=== PATIENT | female | born 1995 | race Caucasian/White ===

== ENCOUNTER 2017-09-21 19:47 | Emergency (ER) | payer MEDICAID, MEDICARE, OTHER ==
[~2017-09-21] VITALS: Ht 157.5 cm; Wt 70.8 kg
--- OUTSIDE RECORDS SUMMARY | 2017-09-21 19:56 | XMS REPORT ---
Author Author Keisha Hoover [facility] Address [address] [place], [place] [id number] Care Team Providers Care Talent Manager Name Role Phone Keisha Hoover PCP Unavailable Allergies and Adverse Reactions Name Reaction Notes Alejandra Mom does not want her to have Motrin Plan of Treatment Not available. Medications Active Name Start Date Estimated Completion Date SIG Comments Minipress 1 mg oral capsule take 4 capsules (4 mg) by oral route daily at bedtime Latuda 40 mg oral tablet take 1 tablet (40 mg) by oral route once daily with food (at least 350 calories) Vistaril 25 mg oral capsule take 1 capsule (25 mg) by oral route 3 times per day acetaminophen 325 mg oral tablet 02/17/2016 take 1 - 2 tablets (325 - 650 mg ) by oral route every 4-6 hours as needed Max:3 gram/day topiramate 50 mg oral tablet 02/25/2016 08/23/2016 take 1 tablet (50 mg) by oral route 2 times per day for 30 days topiramate 100 mg oral tablet 02/25/2016 08/23/2016 take 1 tablets by oral route 2 times a day for 30 days cetirizine 10 mg oral tablet 03/11/2016 09/07/2016 take 1 tablet (10 mg) by oral route once daily for 30 days Ambien 5 mg oral tablet take 1 tablet (5 mg) by oral route once daily at bedtime cyclobenzaprine 5 mg oral tablet 04/08/2016 take 1 tablet by oral route once a day (at bedtime) as needed omeprazole 40 mg oral capsule,delayed release(DR/EC) 04/23/2016 07/22/2016 take 1 capsule by oral route 2 times a day for 30 days cyclobenzaprine 5 mg oral tablet 05/04/2016 take 1 tablet by oral route once a day (at bedtime) as needed lamotrigine 200 mg oral tablet 05/11/2016 take 1 tablet (200 mg) by oral route 2 for 30 days CytoGam 50 mg/mL intravenous solution 06/08/2016 06/09/2016 inject 1 milliliter by intravenous route daily for 1 day Name Start Date Expiration Date SIG Comments amoxicillin-pot clavulanate 500-125 mg oral tablet 09/04/2015 09/14/2015 take 1 tablet by oral route every 12 hours for 10 days sertraline 50 mg oral tablet 09/06/2015 10/06/2015 take 1 tablet (50 mg) by oral route once daily for 30 days topiramate 100 mg oral tablet 09/06/2015 10/06/2015 take 1 tablet (100 mg) by oral route 2 for 30 days clonazepam 1 mg oral tablet 10/23/2015 11/22/2015 take 1 tablet (1 mg) by oral route 2 for 30 days lamotrigine 200 mg oral tablet 03/03/2016 06/01/2016 take 1 tablet (200 mg) by oral route 2 for 30 days Zestril 5 mg oral tablet 04/08/2016 05/08/2016 take 1 tablet (5 mg) by oral route once daily for 30 days Discontinued Name Start Date Discontinued Date SIG Comments fluticasone 50 mcg/actuation nasal spray,suspension 01/27/2016 spray 2 sprays (100 mcg) in each nostril by intranasal route once daily as needed aripiprazole 20 mg oral tablet 09/06/2015 01/27/2016 take 1 tablet (20 mg) by oral route once daily omeprazole 20 mg oral capsule,delayed release(DR/EC) 09/06/2015 09/09/2015 take 1 capsule by oral route 2 times a day for 30 days prazosin 1 mg oral capsule 09/06/2015 01/27/2016 take 3 capsules by oral route daily at bedtime for 30 days prazosin 1 mg oral capsule 09/06/2015 01/27/2016 take 3 capsules by oral route daily at bedtime for 30 days dose updated ProAir HFA 90 mcg/actuation inhalation HFA aerosol inhaler 09/06/20152015 inhale 1 puff (90 mcg) by inhalation route every 6 hours melatonin 3 mg oral tablet 02/17/2016 04/08/2016 take 3 tablets by oral route daily at bedtime for 30 days cyclobenzaprine 5 mg oral tablet 03/11/2016 04/08/2016 take 1 tablet (5 mg) by oral route at bedtime as needed Zestril 5 mg oral tablet 05/04/2016 06/04/2016 take 1 tablet (5 mg) by oral route once daily for 30 days Problem List Description Status Onset Anxiety disorder Active Asperger syndrome Active Bipolar 1 disorder Active 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903 m 99 % 04/08/2016 8:57:00 AM 118 mmHg 60 mmHg 74 bpm 20 rpm 98.1 F 175 lbs 64 in 30.04 kg/m2 1.89 m2 100 % 03/11/2016 9:53:00 AM 128 mmHg 64 mmHg 101 bpm 20 rpm 98.7 F 172 lbs 64 in 29.5234 kg/m 1.877 m 98 % 02/25/2016 10:10:00 AM 124 mmHg 76 mmHg 76 bpm 20 rpm 97.1 F 173 lbs 64 in 29.70 kg/m2 1.88 m2 100 % 01/27/2016 10:27:00 AM 132 mmHg 70 mmHg 82 bpm 20 rpm 98.1 F 172 lbs 64 in 29.5234 kg/m 1.877 m 100 % 09/04/2015 10:09:00 AM 122 mmHg 70 mmHg 77 bpm 20 rpm 98 F 194 lbs 64 in 33.30 kg/m2 1.99 m2 99 % Social History Name Description Comments Lives with Mom Tobacco Never smoker Alcohol Never History of Procedures Date Ordered Description Order Status 09/04/2015 12:00 AM HTLV/HIV CONFIRMJ ANTIBODY Reviewed 09/04/2015 12:00 AM BORDETELLA ANTIBODY Reviewed 01/27/2016 12:00 AM RADEX WRIST COMPLETE MINIMUM 3 VIEWS Reviewed 04/08/2016 12:00 AM Phenergan, Up to 50 Mg [facility] Medicaid Reviewed Results Summary Data and Description Results 09/04/2015 11:35 AM HIV AG/AB COMBO 0.13 Hep A Ab, IgM Negative HBsAg Screen Negative Hep B Core Ab, IgM Negative Hep C Virus Ab <0.1 History Of Immunizations Not available. History of Past Illness Name Date of Onset Comments Seizure disorder frontal lobe Mental retardation Asperger syndrome Depression Anxiety disorder Blind in both eyes Bipolar 1 disorder Gastroesophageal Reflux PTSD (post-traumatic stress disorder) TMJ (dislocation of temporomandibular joint) Benign Essential Hypertension 04/13/2016 Migraine aura without headache 04/13/2016 High risk sexual behavior Sep 04 2015 10:10AM Asperger syndrome Sep 04 2015 10:10AM Bipolar 1 disorder Sep 04 2015 10:10AM Gastroesophageal Reflux Sep 04 2015 10:10AM Mental retardation Sep 04 2015 10:10AM PTSD (post-traumatic stress disorder) Sep 04 2015 10:10AM Seizure disorder Sep 04 2015 10:10AM Wrist pain, acute, right Jan 27 2016 10:28AM Anxiety disorder Jan 27 2016 10:28AM Seizure disorder Jan 27 2016 10:28AM Seizure disorder Feb 25 2016 10:12AM Acute nonintractable headache, unspecified headache type Mar 11 2016 9:55AM Allergic conjunctivitis, bilateral Mar 11 2016 9:55AM Right thigh pain Mar 11 2016 9:55AM Benign essential hypertension Apr 08 2016 8:57AM Migraine aura without headache Apr 08 2016 8:57AM TMJ (dislocation of temporomandibular joint) Jun 04 2016 3:57PM Encounter for surveillance of other contraceptive Jun 04 2016 3:57PM Implanon-checking, reinsertion or removal Jun 08 2016 2:55PM Payers Insurance Name Company Name Plan Name Plan Number Policy Number Policy Group Number Start Date Medicare Part A Medicare RHC [id number] N/A [facility] Comm [id number] N/A Medicare Part B Medicare Of [place] [id number] N/A [facility] Comm Plan of [id number] N/A Medicare Part A Medicare - Lab/Xray [id number] N/A Medicare Part A Medicare Part A [id number] N/A History of Encounters Visit Date Visit Type Provider 06/08/2016 Office visit Keisha Hoover APRN 06/04/2016 Office visit Dionisio Evans DO 04/08/2016 Office visit Dionisio Evans DO 03/11/2016 Office visit Dionisio Evans DO 02/25/2016 Office visit Dionisio Evans DO 02/20/2016 [facility] Behzad Jamison MD 01/27/2016 Office visit Dionisio Evans DO 10/09/2015 [facility] Behzad Jamison MD 09/04/2015 Office visit Dionisio Evans DO
--- OUTSIDE RECORDS SUMMARY | 2017-09-21 19:56 | XMS REPORT ---
Author Author Dionisio Evans [facility] Address [address] [place] [id number] Care Team Providers Care Clam Shucker Name Role Phone Dionisio Evans PCP Unavailable Allergies and Adverse Reactions Name [...] by oral route 3 times per day omeprazole 40 mg oral capsule,delayed release(DR/EC) 02/11/2016 take 1 capsule by oral route daily acetaminophen 325 mg oral tablet 02/17/2016 take 1 - 2 tablets (325 - 650 mg ) by oral route every 4-6 hours as needed Max:3 gram/day melatonin 3 mg oral tablet 02/17/2016 08/15/2016 take 3 tablets by oral route daily at bedtime for 30 days topiramate 50 mg oral tablet 02/25/2016 08/23/2016 take 1 tablet (50 mg) by oral route 2 times per day for 30 days topiramate 100 mg oral tablet 02/25/2016 08/23/2016 take 1 tablets by oral route 2 times a day for 30 days lamotrigine 200 mg oral tablet 03/03/2016 06/01/2016 take 1 tablet (200 mg) by oral route 2 for 30 days cetirizine 10 mg oral tablet 03/11/2016 09/07/2016 take 1 tablet (10 mg) by oral route once daily for 30 days cyclobenzaprine 5 mg oral tablet 03/11/2016 take 1 tablet (5 mg) by oral route at bedtime as needed Zestril 20 mg oral tablet 03/11/2016 04/10/2016 take 0.5 tablet by oral route daily for 30 days Name Start Date Expiration Date SIG Comments [...] by oral route 2 for 30 days Discontinued Name Start Date Discontinued Date SIG Comments fluticasone 50 mcg/actuation nasal spray,suspension 01/27/2016 spray 2 sprays (100 mcg) in each nostril by intranasal route once daily as needed fluticasone 50 mcg/actuation nasal spray,suspension 01/27/2016 spray [...] mcg) by inhalation route every 6 hours Problem List Description Status Onset Anxiety disorder Active Asperger syndrome Active Bipolar 1 disorder Active 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 Depression Active Gastroesophageal Reflux Active Mental retardation Active PTSD (post-traumatic stress disorder) Active Seizure disorder Active TMJ (dislocation of temporomandibular joint) Active Vital Signs Date Time BP-Sys(mm[Hg] BP-Paola(mm[Hg]) HR(bpm) RR(rpm) Temp WT HT HC BMI BSA BMI Percentile O2 Sat(%) 03/11/2016 9:53:00 AM 128 mmHg 64 mmHg 101 bpm 20 rpm 98.7 F 172 lbs 64 in 29.52 kg/m2 1.88 m2 98 % 02/25/2016 10:10:00 AM 124 mmHg 76 mmHg 76 bpm 20 rpm 97.1 F 173 lbs 64 in 29.6951 kg/m 1.8824 m 100 % 01/27/2016 10:27:00 AM 132 mmHg 70 mmHg 82 bpm 20 rpm 98.1 F 172 lbs 64 in 29.52 kg/m2 1.88 m2 100 % 09/04/2015 10:09:00 AM 122 mmHg 70 mmHg 77 bpm 20 rpm 98 F 194 lbs 64 in 33.2997 kg/m 1.9934 m 99 % Social History Name Description Comments Lives with Mom Tobacco Never smoker Alcohol Never History of Procedures Date Ordered Description Order Status 09/04/2015 12:00 AM HTLV/HIV CONFIRMJ ANTIBODY Reviewed 09/04/2015 12:00 AM BORDETELLA ANTIBODY Reviewed 01/27/2016 12:00 AM RADEX WRIST COMPLETE MINIMUM 3 VIEWS Reviewed Results Summary Data and Description Results [...] stress disorder) TMJ (dislocation of temporomandibular joint) High risk sexual behavior Sep 04 2015 [...] Right thigh pain Mar 11 2016 9:55AM Payers Insurance Name Company Name Plan Name Plan Number Policy Number Policy Group Number Start Date Medicare Part A Medicare [facility] [id number] N/A [facility] - RHC - Community Plan of [facility] RHC Comm [id number] N/A Medicare Part B Medicare Of [place] [id number] N/A [facility] Plan [facility] Comm Plan of [id number] N/A Medicare Part A Medicare - Lab/Xray [id number] N/A Medicare Part A Medicare Part A [id number] N/A History of Encounters Visit Date Visit Type Provider 03/11/2016 Office visit Dionisio Evans DO 02/25/2016 Office visit Dionisio Evans DO 01/27/2016 Office visit Dionisio Evans DO 10/09/2015 [facility] Behzad Jamison MD 09/04/2015 Office visit Dionisio Evans DO
--- OUTSIDE RECORDS SUMMARY | 2017-09-21 19:56 | XMS REPORT ---
Author Author Dionisio Evans [facility] Address [address] [place] [id number] Care Team Providers Care Executive Chairman Of The Board Name Role Phone Dionisio Evans PCP Unavailable [...] by oral route 2 for 30 days hydrocodone-acetaminophen 7.5-325 mg oral tablet 06/25/2016 take 1 tablet by oral route every 6 hours as needed for pain cyclobenzaprine 5 mg oral tablet 07/06/2016 take 1 tablet by oral route once a day (at bedtime) as needed Mirena 20 mcg/24 hr (5 years) intrauterine intrauterine device omeprazole 40 mg oral capsule,delayed release(DR/EC) 07/28/2016 take 1 capsule by oral route 2 times a day for 30 days cetirizine 10 mg oral tablet 07/28/2016 take 1 tablet (10 mg) by oral route once daily for 30 days topiramate 50 mg oral tablet 07/30/2016 take 1 tablet (50 mg) by oral route 2 times per day for 30 days cyclobenzaprine 5 mg oral tablet 07/30/2016 take 1 tablet by oral route once a day (at bedtime) as needed Patanol 0.1 % ophthalmic drops 07/31/2016 instill 1 drop into affected eye (s) by ophthalmic route 2 times per day at an interval of 6 to 8 hours Name Start Date Expiration Date SIG Comments [...] oral route once daily for 30 days omeprazole 40 mg oral capsule,delayed release(DR/EC) 04/23/2016 07/22/2016 take 1 capsule by oral route 2 times a day for 30 days CytoGam 50 mg/mL intravenous solution 06/08/2016 06/09/2016 inject 1 milliliter by intravenous route daily for 1 day nystatin 100,000 unit/gram topical powder 07/24/2016 07/29/2016 use as directed for 5 days Discontinued Name Start Date Discontinued Date [...] TMJ (dislocation of temporomandibular joint) Active Benign essential hypertension Active 04/13/2016 Migraine aura without headache Active 04/13/2016 Vital Signs Date Time BP-Sys(mm[Hg] BP-Paola(mm[Hg]) HR(bpm) RR(rpm) Temp WT HT HC BMI BSA BMI Percentile O2 Sat(%) 07/31/2016 10:07:00 AM 126 mmHg 68 mmHg 78 bpm 18 rpm 97.4 F 171 lbs 64 in 29.35 kg/m2 1.87 m2 99 % 07/24/2016 10:39:00 AM 122 mmHg 66 mmHg 63 bpm 97.6 F 174 lbs 64 in 29.8667 kg/m 1.8878 m 06/12/2016 10:06:00 AM 106 mmHg 66 mmHg 60 bpm 97.4 F 172 lbs 64 in 29.52 kg/m2 1.88 m2 06/11/2016 8:43:00 AM 122 mmHg 66 mmHg 62 bpm 18 rpm 98 F 174 lbs 64 in 29.8667 kg/m 1.8878 m 98 % 06/08/2016 2:10:00 PM 108 mmHg 62 mmHg [...] 12:00 AM Phenergan, Up to 50 Mg RHC Medicaid Reviewed 06/08/2016 12:00 AM REMOVE CONTRACEPTIVE CAPSULE Reviewed 06/12/2016 10:38 AM URINE TEST Reviewed 06/12/2016 12:00 AM INSERT INTRAUTERINE DEVICE Reviewed 06/12/2016 12:00 AM Levonorgestrel-releasing IUD contraceptive system, 52 mg 5 year Reviewed 06/11/2016 12:00 AM ASSAY OF FREE THYROXINE Reviewed 06/11/2016 12:00 AM ASSAY OF TOTAL THYROXINE Reviewed 06/11/2016 12:00 AM ASSAY THYROID STIM HORMONE Reviewed 06/11/2016 12:00 AM ASSAY OF THYROID (T3 OR T4) Reviewed Results Summary Data and Description Results 09/04/2015 11:35 AM HIV AG/AB COMBO 0.13 Hep A Ab, IgM Negative HBsAg Screen Negative Hep B Core Ab, IgM Negative Hep C Virus Ab <0.1 06/11/2016 9:50 AM FREE T4 1.02 TSH 1.740 uIU/mL 06/12/2016 10:38 AM Test, Urine Negative History Of Immunizations Not available. History of Past Illness Name Date of Onset Comments Seizure disorder frontal lobe Mental retardation Asperger syndrome Depression Anxiety disorder Blind in both eyes Bipolar 1 disorder Gastroesophageal Reflux PTSD (post-traumatic stress disorder) TMJ (dislocation of temporomandibular joint) Benign essential hypertension 04/13/2016 Migraine aura without headache 04/13/2016 High [...] reinsertion or removal Jun 08 2016 2:55PM Bilateral Exophthalmos Jun 11 2016 8:46AM Special investigations and examinations; examination or test; examination or test, negative result Jun 12 2016 10:38AM IUD insertion Jun 12 2016 10:28AM IUD Check/Removal/Management/Reinsertion Jul 24 2016 10:42AM Seizure disorder Jul 31 2016 10:08AM Allergic conjunctivitis and rhinitis Jul 31 2016 10:08AM Payers Insurance Name Company Name Plan Name Plan Number Policy Number Policy Group Number Start Date Medicare Part A Medicare RHC [id number] N/A [facility] - RHC - Community Plan [facility] RHC Comm [id number] N/A Medicare Part B Medicare Of [place] [id number] N/A [facility] Comm Plan of [id number] N/A Medicare Part A Medicare - Lab/Xray [id number] N/A Medicare Part A Medicare Part A [id number] N/A History of Encounters Visit Date Visit Type Provider 07/31/2016 Office visit Dionisio Evans DO 07/24/2016 Office visit Keisha Hoover COMMUNICATIONS SYSTEMS ENGINEER 06/12/2016 Office visit Keisha Hoover COMMUNICATIONS SYSTEMS ENGINEER 06/11/2016 Office visit Dionisio Evans DO 06/08/2016 Office visit Keisha Hoover COMMUNICATIONS SYSTEMS ENGINEER 06/04/2016 Office visit Dionisio Evans DO 04/08/2016 Office visit Dionisio Evans DO 03/11/2016 Office visit Dionisio Evans DO 02/25/2016 Office visit Dionisio Evans DO 02/20/2016 [facility] Behzad Jamison MD 01/27/2016 Office visit Dionisio Evans DO 10/09/2015 [facility] Behzad Jamison MD 09/04/2015 Office visit Dionisio Evans DO
--- OUTSIDE RECORDS SUMMARY | 2017-09-21 19:56 | XMS REPORT ---
Author Author Keisha Hoover [facility] [place] [facility] Address [address] [place], [place] [phone] Care Team Providers Care Plate And Frame Filter Operator Name Role Phone Keisha Hoover PCP Unavailable [...] every 6 hours as needed for pain Name Start Date Expiration Date SIG Comments [...] oral route once daily for 30 days CytoGam 50 mg/mL intravenous solution 06/08/2016 06/09/2016 inject 1 milliliter by intravenous route daily for 1 day Discontinued Name Start Date Discontinued Date SIG [...] HC BMI BSA BMI Percentile O2 Sat(%) 06/12/2016 10:06:00 AM 106 mmHg 66 mmHg [...] C Virus Ab <0.1 06/11/2016 9:50 AM TSH 1.740 uIU/mL 06/12/2016 10:38 AM Test, [...] 10:38AM IUD insertion Jun 12 2016 10:28AM Payers Insurance Name Company Name Plan Name Plan Number Policy Number Policy Group Number Start Date Medicare Part A Medicare RHC [id number] N/A [facility] - Community Plan [facility] RHC Comm [id number] N/A Medicare Part B Medicare Of [place] [id number] N/A [facility] Comm Plan of [id number] N/A Medicare Part A Medicare - Lab/Xray [id number] N/A Medicare Part A Medicare Part A [id number] N/A History of Encounters Visit Date Visit Type Provider 06/12/2016 Office visit Keisha Hoover FINANCIAL ADVISOR TRAINEE 06/11/2016 Office visit Dionisio Evans DO 06/08/2016 Office visit Keisha Hoover FINANCIAL ADVISOR TRAINEE 06/04/2016 Office visit Dionisio Evans DO 04/08/2016 Office visit Dionisio Evans DO 03/11/2016 Office visit Dionisio Evans DO 02/25/2016 Office visit Dionisio Evans DO 02/20/2016 [facility] Behzad Jamison MD 01/27/2016 Office visit Dionisio Evans DO 10/09/2015 [facility] Behzad Jamison MD 09/04/2015 Office visit Dionisio Evans DO
--- OUTSIDE RECORDS SUMMARY | 2017-09-21 19:57 | XMS REPORT | CCD ---
Author Author SHANIQUE GAUTHIER Organization Unknown Address [address] [address] [place] [id number] Care Team Providers Care Aerial Photograph Interpreter Name Role Phone KAYLIN BOB, DOLLY Callahan DOLLY EWING MD Vital Signs Unknown or Not Available. Allergies Unknown or Not Available. Procedures Procedure Code Procedure Type Date CERVICAL SPINE; 2 VIEWS OR [id number] 09/2016 History of Immunizations Immunization Code Date DTP 01 1994 DTP 01 1994 OPV 02 1994 OPV 02 1994 OPV 02 07/13/1995 OPV 02 04/04/1999 MMR 03 07/13/1995 MMR 03 04/04/1999 Hep B, adolescent or pediatric 08 1994 Hep B, adolescent or pediatric 08 1994 Hep B, adolescent or pediatric 08 1994 DTaP 20 04/04/1999 DTP-Hib 22 07/13/1995 HBIG 30 1994 Hib (PRP-OMP) 49 1994 Hib (PRP-OMP) 49 1994 Problems Unknown or Not Available. Results Unknown or Not Available. Active Medications Unknown or Not Available. Medications Administered During Visit Unknown or Not Available. Encounters Encounter Diagnosis Diagnosis Code Start Date Generalized idiopathic epilepsy and epileptic syndromes, not intractable, without status epilepticus [id number] 02/20/2016 Social History Smoking Status Code Start Date End Date Never smoker [id number] Patient Decision Aids Unknown or Not Available. Discharge Instructions You were admitted to [facility] on 02/20/2016 08:39 with a principal diagnosis of Generalized idiopathic epilepsy and epileptic syndromes, not intractable, You were discharged from [facility] on 02/20/2016 09:41 Should you have any questions prior to discharge, please contact a member of your healthcare team. If you have left the hospital and have any questions, please contact your primary care physician. Chief Complaint and Reason For Visit Chief Complaint Date of Onset SEIZURE NECK PAIN Function Status Unknown or Not Available. Plan of Care Unknown or Not Available. Referral/Transition of Care Unknown or Not Available.
--- OUTSIDE RECORDS SUMMARY | 2017-09-21 19:57 | XMS REPORT ---
Author Author Dionisio Evans [facility] Address [address] [place] [id number] Care Team Providers Care Typing Teacher Name Role Phone Dionisio Evans PCP Unavailable Allergies and Adverse Reactions Name Reaction Notes Breantikiara Mom does not want her to have [...] by oral route 3 times per day Ambien 5 mg oral tablet take 1 tablet (5 mg) by oral route once daily at bedtime cyclobenzaprine 5 mg oral tablet 04/08/2016 take 1 tablet by oral route once a day (at bedtime) as needed lamotrigine 200 mg oral tablet 05/11/2016 take 1 tablet (200 mg) by oral route 2 for 30 days cyclobenzaprine 5 mg oral tablet 07/06/2016 take [...] an interval of 6 to 8 hours cetirizine 10 mg oral tablet 08/25/2016 TAKE 1 TABLET BY MOUTH ONCE DAILY AT 8 A.M. buspirone 15 mg oral tablet take 1 tablet (15 mg) by oral route 3 times per day hydrocodone-acetaminophen 7.5-325 mg oral tablet 09/23/2016 take 1 tablet by oral route every 6 hours as needed for pain topiramate 50 mg oral tablet 09/24/2016 TAKE 1 TABLET BY MOUTH TWICE DAILY AT 8 A.M. AND 8 P.M. cetirizine 10 mg oral tablet 10/22/2016 TAKE 1 TABLET BY MOUTH ONCE DAILY AT 8 A.M. acetaminophen 325 mg oral tablet 10/26/2016 take 2 tablets (650 mg) by oral route every 6 hours as needed for pain or fever Max:3 gram/day melatonin 3 mg oral tablet 10/26/2016 04/24/2017 take 2 tablets by oral route once a day (at bedtime) as needed for 30 days lamotrigine 200 mg oral tablet 11/26/2016 TAKE 1 TABLET BY MOUTH TWICE DAILY AT 8 A.M. AND 8 P.M. cyclobenzaprine 5 mg oral tablet 12/17/2016 TAKE 1 TABLET BY MOUTH AT BEDTIME NEEDED Name Start Date Expiration Date SIG Comments [...] by oral route 2 for 30 days topiramate 50 mg oral [...] oral route once daily for 30 days Zestril 5 mg oral [...] HC BMI BSA BMI Percentile O2 Sat(%) 09/23/2016 9:38:00 AM 128 mmHg 70 mmHg 93 bpm 20 rpm 98 F 163 lbs 64 in 27.98 kg/m2 1.83 m2 100 % 07/31/2016 10:07:00 AM 126 mmHg 68 mmHg 78 bpm 18 rpm 97.4 F 171 lbs 64 in 29.3518 kg/m 1.8715 m 99 % 07/24/2016 10:39:00 AM 122 mmHg 66 mmHg 63 bpm 97.6 F 174 lbs 64 in 29.87 kg/m2 1.89 m2 06/12/2016 10:06:00 AM 106 mmHg 66 mmHg 60 bpm 97.4 F 172 lbs 64 in 29.5234 kg/m 1.877 m 06/11/2016 8:43:00 AM 122 mmHg 66 mmHg 62 bpm 18 rpm 98 F 174 lbs 64 in 29.87 kg/m2 1.89 m2 98 % 06/08/2016 2:10:00 PM 108 mmHg 62 mmHg 80 bpm 16 rpm 99 F 173 lbs 64 in 29.6951 kg/m 1.8824 m 100 % 06/04/2016 3:50:00 PM 126 mmHg 88 mmHg 112 bpm 18 rpm 97.9 F 176.8 lbs 64 in 30.35 kg/m2 1.90 m2 99 % 04/08/2016 8:57:00 AM 118 mmHg 60 mmHg 74 bpm 20 rpm 98.1 F 175 lbs 64 in 30.0384 kg/m 1.8933 m 100 % 03/11/2016 9:53:00 AM 128 mmHg [...] ASSAY OF THYROID (T3 OR T4) Reviewed 12/17/2016 12:00 AM Consult/Referral Reviewed Results Summary Data and Description Results [...] conjunctivitis and rhinitis Jul 31 2016 10:08AM Bitten by dog, subsequent encounter Sep 23 2016 9:40AM Seizure disorder Dec 17 2016 4:33PM Payers Insurance Name Company Name Plan Name Plan Number Policy Number Policy Group Number Start Date Medicare RHC Medicare RHC [id number] N/A [facility] Comm [id number] N/A Medicare Part B Medicare Of [place] [id number] N/A [facility] Plan of [id number] N/A Medicare Part A Medicare - Lab/Xray [id number] N/A Medicare Part A Medicare Part A [id number] N/A History of Encounters Visit Date Visit Type Provider 09/23/2016 Office visit Dionisio Evans DO 07/31/2016 Office visit Dionisio Evans DO 07/24/2016 Office visit Keisha Hoover OPERATIONS RESEARCH MANAGER 06/12/2016 Office visit Keisha Hoover OPERATIONS RESEARCH MANAGER 06/11/2016 Office visit Dionisio Evans DO 06/08/2016 Office visit Keisha Hoover OPERATIONS RESEARCH MANAGER 06/04/2016 Office visit Dionisio Evans DO 04/08/2016 Office visit Dionisio Evans DO 03/11/2016 Office visit Dionisio Evans DO 02/25/2016 Office visit Dionisio Evans DO 02/20/2016 Hospital Behzad Jamison MD 01/27/2016 Office visit Dionisio Evans DO 10/09/2015 [facility] Behzad Jamison MD 09/04/2015 Office visit Dionisio Evans DO
--- OUTSIDE RECORDS SUMMARY | 2017-09-21 19:57 | XMS REPORT ---
Author Author ANTONIO GILLESPIE [facility] Address Unknown Care Team Providers Care Payroll Representative Name Role Phone ANTONIO GILLESPIE Unavailable PROBLEMS Type Condition ICD9-CM Code [id number] Code Onset Dates Condition Status SNOMED Code Assessment Dental examination Z01.20 Jun, Active 594176840 ALLERGIES Substance Reaction Event Type Date Status dilantin Unknown Non Drug Allergy Jun, Active motrin Unknown Non Drug Allergy Jun, Active SOCIAL HISTORY No smoking Hx information available PLAN OF CARE VITAL SIGNS Blood pressure systolic 101 mmHg 2016-06-18 Blood pressure diastolic 58 mmHg 2016-06-18 MEDICATIONS Medication Instructions Dosage Frequency Start Date End Date Duration Status Cyclobenzaprine HCl Active Topamax Active Vistaril Active Prilosec Active Latuda Active Hydrocodone-Acetaminophen Active ZyrTEC Active Zestril Active Ambien Active Lamictal Active RESULTS No Results PROCEDURES Procedure Date Ordered Related Diagnosis Body Site LTD ORAL EVALUATION - PROBLEM FOCUS Jun 18, 2016 PANORAMIC FILM SEE ALSO CODE 51388 Jun 18, 2016 IMMUNIZATIONS No Known Immunizations
--- OUTSIDE RECORDS SUMMARY | 2017-09-21 19:57 | XMS REPORT | CCD ---
Author Author DADA REA Organization Unknown Address [address] [place], [place] [address] Care Team Providers Care Paint Specialist Name Role Phone KAYLIN BOB, DOLLY Del Toro Attphymya DOLLY EWING MDsurey Vital Signs Unknown or Not Available. Allergies Unknown or Not Available. Procedures Procedure Code Procedure Type Date CBC W/ AUTO DIFF (RFLX MAN DIFF IF IND) 4307129 SNOMED CT 10/09/2015 COMPREHENSIVE METABOLIC PANEL 135977891 SNOMED CT [address] 10/09/2015 RAPID DRUG SCREEN 229854351 SNOMED CT 10/09/2015 UA ROUTINE C&S IF IND 976148382 SNOMED CT 10/09/[id number] 10/09/2015 ^CBC W/AUTO DIFF 1050216 SNOMED CT 10/09/2015 ^UA AUTO DIPSTICK ONLY 779435312 SNOMED CT 10/09/2015 History of Immunizations Immunization Code Date DTP 1994 DTP 1994 OPV 02 1994 OPV 02 1994 OPV 02 07/13/1995 OPV 02 04/04/1999 MMR 03 07/13/1995 MMR 03 04/04/1999 Hep B, adolescent or pediatric 08 1994 Hep B, adolescent or pediatric 08 1994 Hep B, adolescent or pediatric 08 1994 DTaP 20 04/04/1999 Hib (PRP-OMP) 49 1994 Hib (PRP-OMP) 49 1994 Problems Unknown or Not Available. Results COMPREHENSIVE METABOLIC PANEL - Collect Date/Time: 10/09/2015 16:40 Test Name Code Test Result Test Units Test Ref Range GLUCOSE 2345-7 102 MG/DL L=70 H=100 SODIUM 2951-2 143 MEQ/L L=135 H=148 POTASSIUM 2823-3 3.6 MEQ/L L=3.5 H=5.3 CHLORIDE 2075-0 113 MEQ/L L=96 H=110 CO2 2028-9 20 MEQ/L L=22 H=29 BUN 3094-0 13 MG/DL L=8 H=22 CREATININE 2160-0 1.1 MG/DL L=0.6 H=1.6 SGOT/AST 1920-8 12 IU/L L=10 H=40 SGPT/ALT 1742-6 16 IU/L L=8 H=54 ALK PHOS 6768-6 110 IU/L L=35 H=115 TOTAL PROTEIN 2885-2 7.8 G/DL L=5.5 H=8.5 ALBUMIN 1751-7 4.6 G/DL L=3.1 H=5.4 TOTAL BILI 1975-2 0.2 MG/DL L=0.0 H=1.5 CALCIUM 32063-9 9.7 MG/DL L=8.2 H=10.6 AGE 20 yrs GFR NonAA 63 GFR AA 76 eGFR >60 N/A eGFR AA* >60 N/A ALCOHOL - Collect Date/Time: 10/09/2015 16:40 Test Name Code Test Result Test Units Test Ref Range ETHANOL 5640-8 <10 MG/DL RAPID DRUG SCREEN - Collect Date/Time: 10/09/2015 17:07 Test Name Code Test Result Test Units Test Ref Range Cannabinoids (THC) NEGATIVE N/A NEG: < 50 ng/ ml Phencyclidine (PCP) NON-NEGATIVE N/A NEG: < 25 ng/ml Cocaine NEGATIVE N/A NEG: < 300 ng/ml Methamphetamine NEGATIVE N/A NEG: < 1000 ng/ml Opiates NEGATIVE N/A NEG: < 300 ng/ml Amphetamine NEGATIVE N/A NEG: < 1000 ng/ml Benzodiazepines NEGATIVE N/A NEG: < 300 ng/ml Tricyclic Antidepres NEGATIVE N/A NEG: < 300 ng/ ml Methadone NEGATIVE N/A NEG: < 300 ng/ml Barbiturates NEGATIVE N/A NEG: < 200 ng/ml Oxycodone NEGATIVE N/A NEG: < 100 ng/ml Propoxyphene (PPX) NEGATIVE N/A NEG: < 300 ng/ ml CBC W/ AUTO DIFF (RFLX MAN DIFF IF IND) - Collect Date/Time: 10/09/2015 16:40 Test Name Code Test Result Test Units Test Ref Range WBC 10049-1 8.1 TH/CMM L=4.5 H=10.8 RBC 789-8 5.01 ML/CMM L=4.20 H=5.40 HGB 718-7 14.4 G/DL L=12.0 H=16.0 HCT 4544-3 43.1 % L=37.0 H=47.0 MCV 86 FL L=81 H=99 MCH 28.7 PG L=27.0 H=33.0 MCHC 33.4 G/DL L=31.0 H=36.0 RDW SD 46 FL L=36 H=50 RDW CV 14.8 % L=0.0 H=14.8 MPV 9.9 FL L=9.3 H=12.5 PLT 777-3 285 TH/CMM L=130 H=440 NRBC# 0.00 TH/CMM L=0.00 H=0.00 NRBC% 0.0 /100WBC L=0.0 H=2.0 %NEUT 67.8 % %LYMP 26.8 % %MONO 3.7 % %EOS 1.2 % %BASO 0.5 % #NEUT 5.47 TH/CMM L=2.10 H=8.20 #LYMP 2.16 TH/CMM L=0.90 H=5.20 #MONO 0.30 TH/CMM L=0.16 H=1.00 #EOS 0.10 TH/CMM L=0.00 H=0.80 #BASO 0.04 TH/CMM L=0.00 H=0.20 MANUAL DIFF NOT IND N/A UA ROUTINE C&S IF IND - Collect Date/Time: 10/09/2015 17:07 Test Name Code Test Result Test Units Test Ref Range COLOR YELLOW N/A NL: YELLOW APPEARANCE CLEAR N/A NL: CLEAR SPEC GRAV 1.025 N/A NL: 1.002 - 1.022 pH 6.5 N/A NL: 5 - 9 PROTEIN NEGATIVE N/A NL: NEGATIVE mg/dl GLUCOSE NEGATIVE N/A NL: NEGATIVE mg/dl KETONE NEGATIVE N/A NL: NEGATIVE mg/dl BILIRUBIN NEGATIVE N/A NL: NEGATIVE BLOOD NEGATIVE N/A NL: NEGATIVE NITRITE NEGATIVE N/A NL: NEGATIVE LEUK SCREEN NEGATIVE N/A NL: NEGATIVE MICRO INDICATED? NOT INDICATED N/A TEST - Collect Date/Time: 10/09/2015 16:40 Test Name Code Test Result Test Units Test Ref Range TEST 2118-8 NEGATIVE N/A Active Medications Unknown or Not Available. Medications Administered During Visit Unknown or Not Available. Encounters Encounter Diagnosis Diagnosis Code Start Date Post-traumatic stress disorder, unspecified F4310 10/09/2015 Social History Smoking Status Code Start Date End Date Never smoker [id number] Patient Decision Aids Unknown or Not Available. Discharge Instructions You were admitted to [facility] on 10/09/2015 with a principal diagnosis of Post-traumatic stress disorder, unspecified. You were discharged from [facility] on 10/09/2015. Should you have any questions prior to discharge, please contact a member of your healthcare team. If you have left the hospital and have any questions, please contact your primary care physician. Chief Complaint and Reason For Visit Chief Complaint Date of Onset MEDICAL CLEARANCE Function Status Unknown or Not Available. Plan of Care Unknown or Not Available. Referral/Transition of Care Unknown or Not Available.
--- OUTSIDE RECORDS SUMMARY | 2017-09-21 19:57 | XMS REPORT | CCD ---
Author Author MOLLY CHILDRESS Organization Unknown Address [address] [place] [address] Care Team Providers Care Commercial Lines Underwriter Name Role Phone LAKIA RIBERA DO Attphys Allergies Allergy Code Allergy Type Reaction Status IBU 570757 Drug allergy Active DILANTIN 612455 Drug allergy Active Active Medications Unknown or Not Available. Problems Unknown or Not Available. Procedures Unknown or Not Available. Results Unknown or Not Available. Encounters Encounter Diagnosis Diagnosis Code Start Date Encounter for removal of sutures Z4802 10/02/2016 Function Status Unknown or Not Available. History of Immunizations Immunization Code Date DTP [...] (PRP-OMP) 49 1994 Hib (PRP-OMP) 49 1994 Plan of Treatment Unknown or Not Available. Social History Smoking Status Code Start Date End Date Never smoker [id number] Vital Signs Unknown or Not Available. Function Status Unknown or Not Available. Goals Unknown or Not Available. ASSESSMENTS Unknown or Not Available. Health Concerns Section Unknown or Not Available.
--- OUTSIDE RECORDS SUMMARY | 2017-09-21 19:58 | XMS REPORT ---
Author Author Keisha Hoover [facility] Address [address] [place], [place] [phone] Care Team Providers Care Coastal And Estuary Specialist Name Role Phone Keisha Hoover PCP Unavailable [...] 30 days hydrocodone-acetaminophen 7.5-325 mg oral tablet 06/11/2016 take 1 tablet by oral route every [...] Up to 50 Mg RHC Medicaid Reviewed 06/12/2016 10:38 AM URINE TEST Reviewed 06/11/2016 12:00 AM ASSAY OF FREE [...] Start Date Medicare Part A Medicare RHC [id number] [facility] Comm [id number] N/A Medicare Part B Medicare Of [place] [id number] N/A [facility] Comm Plan of [id number] N/A Medicare Part A Medicare - Lab/Xray [id number] N/A Medicare Part A Medicare Part A [id number] N/A History of Encounters Visit Date Visit Type Provider 06/12/2016 Office visit Keisha Hoover EDGE SANDER 06/11/2016 Office visit Dionisio Evans DO 06/08/2016 Office visit Keisha Hoover EDGE SANDER 06/04/2016 Office visit Dionisio Evans DO 04/08/2016 Office visit Dionisio Evans DO 03/11/2016 Office visit Dionisio Evans DO 02/25/2016 Office visit Dionisio Evans DO 02/20/2016 [facility] Behzad Jmaison MD 01/27/2016 Office visit Dionisio Evans DO 10/09/2015 Hospital Behzad Jamison MD 09/04/2015 Office visit Dionisio Evans DO
--- OUTSIDE RECORDS SUMMARY | 2017-09-21 19:58 | XMS REPORT ---
Author Author Kaye Raman [facility] Address [address] [place], [place] [address] Care Team Providers Care Warehouse Insulation Worker Name Role Phone Kaye Raman PCP Unavailable Allergies and Adverse Reactions Name [...] HC BMI BSA BMI Percentile O2 Sat(%) 12/28/2016 11:11:00 AM 112 mmHg 64 mmHg 66 bpm 18 rpm 97.6 F 158.125 lbs 64 in 27.14 kg/m2 1.80 m2 98 % 09/23/2016 9:38:00 AM 128 mmHg 70 mmHg 93 bpm 20 rpm 98 F 163 lbs 64 in 27.9786 kg/m 1.8272 m 100 % 07/31/2016 10:07:00 AM 126 mmHg [...] 9:40AM Seizure disorder Dec 17 2016 4:33PM General medical exam Dec 28 2016 11:13AM Payers Insurance Name Company Name Plan Name Plan Number Policy Number Policy Group Number Start Date Medicare RHC Medicare RHC [id number] N/A [facility] Comm [id number] N/A Medicare Part B Medicare Of [place] [id number] N/A [facility] Comm Plan of [id number] N/A Medicare Part A Medicare - Lab/Xray [id number] N/A Medicare Part A Medicare Part A [id number] N/A History of Encounters Visit Date Visit Type Provider 12/28/2016 Office visit Kaye Raman APRN 09/23/2016 Office visit Dionisio Evans DO 07/31/2016 Office visit Dionisio Evans DO 07/24/2016 Office visit Keisha Hoover CHLORINE OPERATOR 06/12/2016 Office visit Keisha Hoover CHLORINE OPERATOR 06/11/2016 Office visit Dionisio Evans DO 06/08/2016 Office visit Keisha Hoover CHLORINE OPERATOR 06/04/2016 Office visit Dionisio Evans DO 04/08/2016 Office visit Dionisio Evans DO 03/11/2016 Office visit Dionisio Evans DO 02/25/2016 Office visit Dionisio Evans DO 02/20/2016 Hospital Behzad Jamison MD 01/27/2016 Office visit Dionisio Evans DO 10/09/2015 [facility] Behzad Jamison MD 09/04/2015 Office visit Dionisio Evans DO
--- OUTSIDE RECORDS SUMMARY | 2017-09-21 19:58 | XMS REPORT | CCD ---
Author MOLLY Cutler Unknown Address [address] [place] [id number] Care Team Providers Care Club Steward Name Role Phone KAYLIN BOB, DOLLY Callahan DOLLY EWING MD Vital Signs Unknown or Not Available. Allergies Unknown or Not Available. Procedures Procedure Code Procedure Type Date CERVICAL SPINE; 2 VIEWS OR [id number] 09/2016 History of Immunizations Immunization [...] epileptic syndromes, not intractable, without status epilepticus Z24853 02/20/2016 Social History Smoking Status Code Start Date End Date Never smoker [id number] Patient Decision Aids Unknown or Not Available. Discharge Instructions You were admitted to [facility] on 02/20/2016 08:39 with a principal diagnosis of Generalized idiopathic epilepsy and epileptic syndromes, not intractable, You were discharged from [facility] on 02/20/2016 09:41 Should you have [...]
--- OUTSIDE RECORDS SUMMARY | 2017-09-21 19:59 | XMS REPORT ---
Author Author Keisha Hoover [facility] Address [address] [place], [place] [address] Care Team Providers Care Technical Stenographer Name Role Phone Keisha Hoover PCP Unavailable [...] by oral route 2 for 30 days Name Start Date Expiration [...] 12:00 AM Phenergan, Up to 50 Mg [facility] Medicaid Reviewed Results Summary Data and Description [...] Start Date Medicare Part A Medicare RHC [id number] N/A [facility] Comm [id number] N/A Medicare Part B Medicare Of [place] [id number] N/A [facility] Comm Plan of [id number] N/A Medicare Part A Medicare - Lab/Xray [id number] N/A Medicare Part A Medicare Part A [id number] N/A History of Encounters Visit Date Visit Type Provider 06/08/2016 Office visit Keisha Hoover APRN 06/04/2016 Office visit Dionisio Evans DO 04/08/2016 Office visit Dionisio Evans DO 03/11/2016 Office visit Dionisio Evans DO 02/25/2016 Office visit Dionisio Evans DO 02/20/2016 [facility] Behzad Jamison MD 01/27/2016 Office visit Dionisio Evans DO 10/09/2015 [facility] Behzad Jamison MD 09/04/2015 Office visit Dionisio Evans DO
--- OUTSIDE RECORDS SUMMARY | 2017-09-21 19:59 | XMS REPORT ---
Author Author Dionisio Evans [facility] Address [address] [place] [id number] Care Team Providers Care Cigarette Machine Filler Name Role Phone Dionisio Evans PCP Unavailable Allergies and Adverse Reactions Name Reaction Notes Alejandra Mom does not want her to have Motrin Plan of Treatment Not available. Medications Active Name Start Date Estimated Completion Date SIG Comments cetirizine 10 mg oral tablet 09/06/2015 03/04/2016 take 1 tablet (10 mg) by oral route once daily for 30 days omeprazole 40 mg oral capsule,delayed release(DR/EC) 09/09/2015 take 1 capsule by oral route daily topiramate 100 mg oral tablet 10/17/2015 TAKE 1 TABLET BY MOUTH TWICE DAILY Minipress 1 mg oral capsule take 4 capsules (4 mg) by oral route daily at bedtime Zestril 20 mg oral tablet take 1 tablet (20 mg) by oral route once daily Latuda 40 mg oral tablet take 1 tablet (40 mg) by oral route once daily with food (at least 350 calories) melatonin 3 mg oral tablet take 3 tablets by oral route daily at bedtime Vistaril 25 mg oral capsule take 1 capsule (25 mg) by oral route 3 times per day Name Start Date Expiration Date SIG Comments amoxicillin-pot clavulanate 500-125 mg oral tablet 09/04/2015 09/14/2015 take 1 tablet by oral route every 12 hours for 10 days lamotrigine 200 mg oral tablet 09/06/2015 12/05/2015 take 1 tablet (200 mg) by oral route 2 for 30 days sertraline 50 mg oral tablet 09/06/2015 [...] HC BMI BSA BMI Percentile O2 Sat(%) 01/27/2016 10:27:00 AM 132 mmHg 70 mmHg [...] pain, acute, right Jan 27 2016 10:28AM Payers Insurance Name Company Name Plan Name Plan Number Policy Number Policy Group Number Start Date Medicare Part A Medicare RHC [id number] N/A [facility] Comm [id number] N/A Medicare Part B Medicare Of [place] [id number] N/A [facility] Plan of [id number] N/A Medicare Part A Medicare - Lab/Xray [id number] N/A Medicare Part A Medicare Part A [id number] N/A History of Encounters Visit Date Visit Type Provider 01/27/2016 Office visit Dionisio Evans DO 10/09/2015 [facility] Behzad Jamison MD 09/04/2015 Office visit Dionisio Evans DO
--- OUTSIDE RECORDS SUMMARY | 2017-09-21 19:59 | XMS REPORT ---
Author Author Dionisio Evans [facility] Address [address] [place] [address] Care Team Providers Care Die Cast Operator Name Role Phone Dionisio Evans PCP Unavailable Allergies and Adverse Reactions Name Reaction Notes Alejandra Mom does not want her to have Motrin Plan of Treatment Not available. Medications Active Name Start Date Estimated Completion Date SIG Comments cetirizine 10 mg oral tablet 09/06/2015 03/04/2016 take 1 tablet (10 mg) by oral route once daily for 30 days topiramate 100 mg oral tablet 10/17/2015 TAKE [...] take 1 capsule by oral route daily Zestril 20 mg oral tablet 02/11/2016 08/09/2016 take 1 tablet (20 mg) by oral route once daily for 30 days acetaminophen 325 mg oral tablet 02/17/2016 take 1 - 2 tablets (325 - 650 mg ) by oral route every 4-6 hours as needed Max:3 gram/day melatonin 3 mg oral tablet 02/17/2016 08/15/2016 take 3 tablets by oral route daily at bedtime for 30 days Name Start Date Expiration [...] 10:28AM Seizure disorder Jan 27 2016 10:28AM Payers Insurance Name Company Name Plan Name Plan Number Policy Number Policy Group Number Start Date Medicare Part A Medicare RHC [id number] N/A [facility] Comm [id number] N/A Medicare Part B Medicare Of [place] [id number] N/A [facility] Plan of [id number] N/A Medicare Part A Medicare - Lab/Xray [id number] N/A Medicare Part A Medicare Part A [id number] N/A History of Encounters Visit Date Visit Type Provider 01/27/2016 Office visit Dionisio Evans DO 10/09/2015 [facility] Behzad Jamison MD 09/04/2015 Office visit Dionisio Evans DO
--- OUTSIDE RECORDS SUMMARY | 2017-09-21 19:59 | XMS REPORT ---
Author Author Dionisio Evans [facility] Address [address] [place] [id number] Care Team Providers Care Infantryman Name Role Phone Dionisio Evans PCP Unavailable [...] Start Date Medicare Part A Medicare RHC [id number] N/A [facility] - RHC - Community Plan [facility] RHC Comm [id number] N/A Medicare Part B Medicare Of [place] [id number] N/A [facility] Comm Plan of [id number] N/A Medicare Part A Medicare - Lab/Xray [id number] N/A Medicare Part A Medicare Part A [id number] N/A History of Encounters Visit Date Visit Type Provider 07/31/2016 Office visit Dionisio Evans DO 07/24/2016 Office visit Keisha Hoover BENCH ASSEMBLY INSPECTOR 06/12/2016 Office visit Keisha Hoover BENCH ASSEMBLY INSPECTOR 06/11/2016 Office visit Dionisio Evans DO 06/08/2016 Office visit Keisha Hoover BENCH ASSEMBLY INSPECTOR 06/04/2016 Office visit Dionisio Evans DO 04/08/2016 Office visit Dionisio Evans DO 03/11/2016 Office visit Dionisio Evans DO 02/25/2016 Office visit Dionisio Evans DO 02/20/2016 Hospital Behzad Jamison MD 01/27/2016 Office visit Dionisio Evans DO 10/09/2015 Hospital Behzad Jamison MD 09/04/2015 Office visit Dionisio Evans DO
--- OUTSIDE RECORDS SUMMARY | 2017-09-21 20:00 | XMS REPORT ---
Author Author Dionisio Evans [facility] Address [address] [place] [address] Care Team Providers Care Engineering And Operations Director Name Role Phone Dionisio Evans PCP Unavailable [...] HC BMI BSA BMI Percentile O2 Sat(%) 06/04/2016 3:50:00 PM 126 mmHg 88 mmHg [...] Up to 50 Mg RHC Medicaid Reviewed Results Summary Data and Description [...] of other contraceptive Jun 04 2016 3:57PM Payers Insurance Name Company Name Plan Name Plan Number Policy Number Policy Group Number Start Date Medicare Part A Medicare RHC [id number] N/A [facility] Comm [id number] N/A Medicare Part B Medicare Of [place] [id number] N/A [facility] Comm Plan of [id number] N/A Medicare Part A Medicare - Lab/Xray [id number] N/A Medicare Part A Medicare Part A [id number] N/A History of Encounters Visit Date Visit Type Provider 06/04/2016 Office visit Dionisio Evans DO 04/08/2016 Office visit Dionisio Evans DO 03/11/2016 Office visit Dionisio Evans DO 02/25/2016 Office visit Dionisio Evans DO 02/20/2016 [facility] Behzad Jamison MD 01/27/2016 Office visit Dionisio Evans DO 10/09/2015 [facility] Behzad Jamison MD 09/04/2015 Office visit Dionisio Evans DO
--- OUTSIDE RECORDS SUMMARY | 2017-09-21 20:00 | XMS REPORT ---
Author Author Dionisio Evans [facility] Address [address] [place] [id number] Care Team Providers Care Rn Pacu Name Role Phone Dionisio Evans PCP Unavailable [...] Number Start Date Medicare RHC Medicare RHC [id number] N/A [facility] Comm [id number] N/A Medicare Part B Medicare Of [place] [id number] N/A [facility] Plan of [id number] N/A Medicare Part A Medicare - Lab/Xray [id number] N/A Medicare Part A Medicare Part A [id number] N/A History of Encounters Visit Date Visit Type Provider 09/23/2016 Office visit Dionisio Evans DO 07/31/2016 Office visit Dionisio Evans DO 07/24/2016 Office visit Keisha Hoover WIRELESS COMMUNICATIONS ENGINEER 06/12/2016 Office visit Keisha Hoover WIRELESS COMMUNICATIONS ENGINEER 06/11/2016 Office visit Dionisio Evans DO 06/08/2016 Office visit Keisha Hoover WIRELESS COMMUNICATIONS ENGINEER 06/04/2016 Office visit Dionisio Evans DO 04/08/2016 Office visit Dionisio Evans DO 03/11/2016 Office visit Dionisio Evans DO 02/25/2016 Office visit Dionisio Evans DO 02/20/2016 Hospital Behzad Jamison MD 01/27/2016 Office visit Dionisio Evans DO 10/09/2015 [facility] Behzad Jamison MD 09/04/2015 Office visit Dionisio Evans DO
--- OUTSIDE RECORDS SUMMARY | 2017-09-21 20:00 | XMS REPORT ---
Author Author Dionisio Evans [facility] Address [address] [place], [place] [phone] Care Team Providers Care City Library Director Name Role Phone Dionisio Evans PCP Unavailable Allergies and Adverse Reactions Name Reaction Notes Alejandra Mom does not want her to have Motrin Plan of Treatment Not available. Medications Active Name Start Date Estimated Completion Date SIG Comments cetirizine 10 mg oral tablet 09/06/2015 03/04/2016 take 1 tablet (10 mg) by oral route once daily for 30 days Minipress 1 mg oral capsule take 4 [...] HC BMI BSA BMI Percentile O2 Sat(%) 02/25/2016 10:10:00 AM 124 mmHg 76 mmHg [...] 10:28AM Seizure disorder Feb 25 2016 10:12AM Payers Insurance Name Company Name Plan Name Plan Number Policy Number Policy Group Number Start Date Medicare Part A Medicare [facility] [id number] N/A [facility] Comm [id number] N/A Medicare Part B Medicare Of [place] [id number] N/A [facility] Comm Plan of [id number] N/A Medicare Part A Medicare - Lab/Xray [id number] N/A Medicare Part A Medicare Part A [id number] N/A History of Encounters Visit Date Visit Type Provider 02/25/2016 Office visit Dionisio Evans DO 01/27/2016 Office visit Dionisio Evans DO 10/09/2015 [facility] Behzad Jamison MD 09/04/2015 Office visit Dionisio Evans DO
--- OUTSIDE RECORDS SUMMARY | 2017-09-21 20:00 | XMS REPORT | CCD ---
Author MOLLY Cutler Organization Unknown Address [address] [place] [address] Care Team Providers Care Operator Helper Name Role Phone [facility] [place] [facility], LAKIA DO Attphys [place] [facility], LAKIA DO Prisurg Allergies Allergy Code Allergy Type Reaction Status IBU [id number] Drug allergy Active DILANTIN 846472 Drug allergy Active Active Medications Unknown or Not Available. Problems Unknown or Not Available. Procedures Unknown or Not Available. Results Unknown or Not Available. Encounters Encounter Diagnosis Diagnosis Code Start Date Laceration without foreign body of lip, subsequent encounter [id number] 09/24/2016 Function Status Unknown or Not Available. History [...] (PRP-OMP) 49 1994 Hib (PRP-OMP) 49 1994 Social History Smoking Status Code Start Date End Date Never smoker [id number] Vital Signs Unknown or Not Available. Function Status Unknown or Not Available. Goals Unknown or Not Available. ASSESSMENTS Unknown or Not Available. Health Concerns Section Unknown or Not Available.
--- OUTSIDE RECORDS SUMMARY | 2017-09-21 20:01 | XMS REPORT ---
Author Author Keisha Hoover [facility] Address [address] [place], [place] [phone] Care Team Providers Care Elastic Cutter Name Role Phone Keisha Hoover PCP Unavailable [...] 12:00 AM Phenergan, Up to 50 Mg [facility] Medicaid Reviewed Results Summary Data [...] Start Date Medicare Part A Medicare RHC [id number] N/A [facility] Comm [id number] N/A Medicare Part B Medicare Of [place] [id number] N/A [facility] Comm Plan of [id number] N/A Medicare Part A Medicare - Lab/Xray [id number] N/A Medicare Part A Medicare Part A [id number] N/A History of Encounters Visit Date Visit Type Provider 06/08/2016 Office visit Keisha Hoover APRN 06/04/2016 Office visit Dionisio Evans DO 04/08/2016 Office visit Dionisio Evans DO 03/11/2016 Office visit Dionisio Evans DO 02/25/2016 Office visit Dionisio Evans DO 02/20/2016 [facility] Behzad Jamison MD 01/27/2016 Office visit Dionisio Evans DO 10/09/2015 [facility] Behzad Jamison MD 09/04/2015 Office visit Dionisio Evans DO
--- OUTSIDE RECORDS SUMMARY | 2017-09-21 20:01 | XMS REPORT ---
Author Author Keisha Hoover [facility] Address [address] [place], [place] [phone] Care Team Providers Care Elementary Math Tutor Name Role Phone Keisha Hoover PCP Unavailable [...] Up to 50 Mg RHC Medicaid Reviewed 06/11/2016 12:00 AM ASSAY OF FREE THYROXINE Returned 06/11/2016 12:00 AM ASSAY OF TOTAL THYROXINE Returned 06/11/2016 12:00 AM ASSAY THYROID STIM HORMONE Returned 06/11/2016 12:00 AM ASSAY OF THYROID (T3 OR T4) Returned 06/12/2016 10:38 AM URINE TEST Reviewed Results Summary Data and Description Results [...] Start Date Medicare Part A Medicare RHC [id number] [facility] RHC Comm [id number] N/A Medicare Part B Medicare Of [place] [id number] N/A [facility] Comm Plan of [id number] N/A Medicare Part A Medicare - Lab/Xray [id number] N/A Medicare Part A Medicare Part A [id number] N/A History of Encounters Visit Date Visit Type Provider 06/12/2016 Office visit Keisha Hoover REBAR WORKER 06/11/2016 Office visit Dionisio Evans DO 06/08/2016 Office visit Keisha Hoover REBAR WORKER 06/04/2016 Office visit Dionisio Evans DO 04/08/2016 Office visit Dionisio Evans DO 03/11/2016 Office visit Dionisio Evans DO 02/25/2016 Office visit Dionisio Evans DO 02/20/2016 [facility] Behzad Jamison MD 01/27/2016 Office visit Dionisio Evans DO 10/09/2015 Hospital Behzad Jamison MD 09/04/2015 Office visit Dionisio Evans DO
--- OUTSIDE RECORDS SUMMARY | 2017-09-21 20:01 | XMS REPORT ---
Author Author Keisha Hoover [facility] Address [address] [place], [place] [phone] Care Team Providers Care Manager Camp Name Role Phone Keisha Hoover PCP Unavailable [...] Start Date Medicare Part A Medicare RHC [id number] [facility] RHC Comm [id number] N/A Medicare Part B Medicare Of [place] [id number] N/A [facility] Comm Plan of [id number] N/A Medicare Part A Medicare - Lab/Xray [id number] N/A Medicare Part A Medicare Part A [id number] N/A History of Encounters Visit Date Visit Type Provider 06/12/2016 Office visit Keisha Hoover PARKING GARAGE MANAGER 06/11/2016 Office visit Dionisio Evans DO 06/08/2016 Office visit Keisha Hoover PARKING GARAGE MANAGER 06/04/2016 Office visit Dionisio Evans DO 04/08/2016 Office visit Dionisio Evans DO 03/11/2016 Office visit Dionisio Evans DO 02/25/2016 Office visit Dionisio Evans DO 02/20/2016 [facility] Behzad Jamison MD 01/27/2016 Office visit Dionisio Evans DO 10/09/2015 [facility] Behzad Jamison MD 09/04/2015 Office visit Dionisio Evnas DO
--- OUTSIDE RECORDS SUMMARY | 2017-09-21 20:02 | XMS REPORT ---
Author Author Dionisio Evans [facility] Address [address] [place] [id number] Care Team Providers Care Photographic Colorist Name Role Phone Dionisio Evans PCP Unavailable [...] needed for pain or fever Max:3 gram/day lamotrigine 200 mg oral tablet 11/26/2016 TAKE 1 TABLET BY MOUTH TWICE DAILY AT 8 A.M. AND 8 P.M. cyclobenzaprine 5 mg oral tablet 12/17/2016 TAKE 1 TABLET BY MOUTH AT BEDTIME NEEDED omeprazole 40 mg oral capsule,delayed release(DR/EC) 02/18/2017 TAKE 1 CAPSULE BY MOUTH TWICE DAILY AT 8 A.M. AND 8 P.M. lamotrigine 200 mg oral tablet 03/19/2017 TAKE 1 TABLET BY MOUTH TWICE DAILY AT 8 A.M. AND 8 P.M. cetirizine 10 mg oral tablet 05/27/2017 TAKE 1 TABLET BY MOUTH ONCE DAILY AT 8 A.M. melatonin 3 mg oral tablet 05/27/2017 11/23/2017 take 2 tablets by oral route once a day (at bedtime) as needed for 30 days Name Start Date Expiration [...] Active PTSD (post-traumatic stress disorder) Active Seizure Disorder Active TMJ (dislocation of temporomandibular joint) Active Benign essential hypertension Active 04/13/2016 Migraine aura without headache Active 04/13/2016 Vital Signs Date Time BP-Sys(mm[Hg] BP-Paola(mm[Hg]) HR(bpm) RR(rpm) Temp WT HT HC BMI BSA BMI Percentile O2 Sat(%) 06/17/2017 10:38:00 AM 124 mmHg 70 mmHg 77 bpm 16 rpm 97.9 F 158 lbs 64 in 27.12 kg/m2 1.80 m2 98 % 12/28/2016 11:11:00 AM 112 mmHg 64 mmHg 66 bpm 18 rpm 97.6 F 158.125 lbs 64 in 27.1418 kg/m 1.7997 m 98 % 09/23/2016 9:38:00 AM 128 mmHg [...] 12/17/2016 12:00 AM Consult/Referral Reviewed Results Summary Date and Description Results 09/04/2015 11:35 AM HIV AG/AB COMBO 0.13 Hep A Ab, IgM Negative HBsAg Screen Negative Hep B Core Ab, IgM Negative Hep C Virus Ab <0.1 06/11/2016 9:50 AM FREE T4 1.02 TSH 1.740 uIU/mL 06/12/2016 10:38 AM Test, Urine Negative History Of Immunizations Not available. History of Past Illness Name Date of Onset Comments Seizure Disorder frontal lobe Mental retardation Asperger syndrome Depression [...] General medical exam Dec 28 2016 11:13AM Benign essential hypertension Jun 17 2017 10:40AM Bipolar 1 disorder Jun 17 2017 10:40AM Gastroesophageal Reflux Jun 17 2017 10:40AM Mental retardation Jun 17 2017 10:40AM PTSD (post-traumatic stress disorder) Jun 17 2017 10:40AM Seizure Disorder Jun 17 2017 10:40AM Encounter for examination for participation in sport Jun 17 2017 10:40AM Payers Insurance Name Company Name Plan Name Plan Number Policy Number Policy Group Number Start Date Medicare RHC Medicare RHC [id number] N/A [facility] C - [facility] Plan [facility] RHC Comm [id number] N/A Medicare Part B Medicare Of [place] [id number] N/A [facility] Comm Plan of [id number] N/A Medicare Part A Medicare - Lab/Xray [id number] N/A Medicare Part A Medicare Part A [id number] N/A History of Encounters Visit Date Visit Type Provider 06/17/2017 Office visit Dionisio Evans DO 12/28/2016 Office visit Kaye Raman WOODEN FURNITURE POLISHER 09/23/2016 Office visit Dionisio Evans DO 07/31/2016 Office visit Dionisio Evans DO 07/24/2016 Office visit Keisha Hoover WOODEN FURNITURE POLISHER 06/12/2016 Office visit Keisha Hoover WOODEN FURNITURE POLISHER 06/11/2016 Office visit Dionisio Evans DO 06/08/2016 Office visit Keisha Hoover WOODEN FURNITURE POLISHER 06/04/2016 Office visit Dionisio Evans DO 04/08/2016 Office visit Dionisio Evans DO 03/11/2016 Office visit Dionisio Evans DO 02/25/2016 Office visit Dionisio Evans DO 02/20/2016 Hospital Behzad Jamison MD 01/27/2016 Office visit Dionisio Evans DO 10/09/2015 Hospital Behzad Jamison MD 09/04/2015 Office visit Dionisio Evans DO
--- OUTSIDE RECORDS SUMMARY | 2017-09-21 20:02 | XMS REPORT ---
Author Author Dionisio Evans [facility] Address [address] [place] [id number] Care Team Providers Care International Accounting Manager Name Role Phone Dionisio Evans PCP Unavailable [...] DAILY AT 8 A.M. AND 8 P.M. Name Start Date Expiration Date SIG Comments [...] dog, subsequent encounter Sep 23 2016 9:40AM Payers Insurance Name Company Name Plan Name Plan Number Policy Number Policy Group Number Start Date Medicare RHC Medicare RHC [id number] N/A [facility] RHC Comm [id number] N/A Medicare Part B Medicare Of [place] [id number] N/A [facility] Comm Plan of [id number] N/A Medicare Part A Medicare - Lab/Xray [id number] N/A Medicare Part A Medicare Part A [id number] N/A History of Encounters Visit Date Visit Type Provider 09/23/2016 Office visit Dionisio Evans DO 07/31/2016 Office visit Dionisio Evans DO 07/24/2016 Office visit Keisha Hoover TECHNICIAN 06/12/2016 Office visit Keisha Hoover TECHNICIAN 06/11/2016 Office visit Dionisio Evans DO 06/08/2016 Office visit Keisha Hoover TECHNICIAN 06/04/2016 Office visit Dionisio Evans DO 04/08/2016 Office visit Dionisio Evans DO 03/11/2016 Office visit Dionisio Evans DO 02/25/2016 Office visit Dionisio Evans DO 02/20/2016 [facility] Behzad Jamison MD 01/27/2016 Office visit Dionisio Evans DO 10/09/2015 [facility] Behzad Jamison MD 09/04/2015 Office visit Dionisio Evans DO
--- OUTSIDE RECORDS SUMMARY | 2017-09-21 20:03 | XMS REPORT | CCD ---
Author MOLLY Cutler Unknown Address [address] [place], [place] [phone] Care Team Providers Care Portable Sawmill Operator Name Role Phone OVIDIO SOLIS MD Attphys OVIDIO SOLIS MD Prisurg Vital Signs Unknown or Not Available. Allergies Allergy Code Allergy Type Reaction Status IBU 413793 Drug allergy Active DILANTIN 539765 Drug allergy Active Procedures Unknown or Not Available. History of Immunizations [...] Results Unknown or Not Available. Active Medications Medications Administered During Visit Unknown or Not Available. Encounters Encounter Diagnosis Diagnosis Code Start Date Dislocation of jaw, initial encounter [id number] 06/02/2016 Social History Smoking Status Code Start Date End Date Never smoker [id number] Patient Decision Aids Unknown or Not Available. Discharge Instructions You were admitted to [facility] on 06/02/2016 14:42 with a principal diagnosis of Dislocation of jaw, initial encounter You were discharged from [facility] on 06/02/2016 18:18 Should you have any questions prior to discharge, please contact a member of your healthcare team. If you have left the hospital and have any questions, please contact your primary care physician. Chief Complaint and Reason For Visit Chief Complaint Date of Onset JAW PROBLEM Function Status Unknown or Not Available. Plan of Care Unknown or Not Available. Referral/Transition of Care Unknown or Not Available.
--- OUTSIDE RECORDS SUMMARY | 2017-09-21 20:03 | XMS REPORT ---
Author Author Dionisio Evans [facility] Address [address] [place], [place] [address] Care Team Providers Care Filler Operator Name Role Phone Dionisio Evans PCP Unavailable Allergies and Adverse Reactions Name Reaction Notes Alejandra Barron does not want her to have Plan of Treatment Not available. Medications Active Name Start Date Estimated Completion Date SIG Comments amoxicillin-pot clavulanate 500-125 mg oral tablet 09/04/2015 09/14/2015 take 1 tablet by oral route every 12 hours for 10 days fluticasone 50 mcg/actuation nasal spray,suspension spray 2 sprays (100 mcg) in each nostril by intranasal route once daily as needed clonazepam 1 mg oral tablet take 1 tablet (1 mg) by oral route 2 times per day aripiprazole 20 mg oral tablet 09/06/2015 take 1 tablet (20 mg) by oral route once daily cetirizine 10 mg oral tablet 09/06/2015 03/04/2016 take 1 tablet (10 mg) by oral route once daily for 30 days lamotrigine 200 mg oral tablet 09/06/2015 12/05/2015 take 1 tablet (200 mg) by oral route 2 for 30 days omeprazole 20 mg oral capsule,delayed release(DR/EC) 09/06/2015 03/04/2016 take 1 capsule by oral route 2 times a day for 30 days prazosin 1 mg oral capsule 09/06/2015 10/06/2015 take 3 capsules by oral route daily at bedtime for 30 days ProAir HFA 90 mcg/actuation inhalation HFA aerosol inhaler 09/06/2015 inhale 1 puff (90 mcg) by inhalation route every 6 hours sertraline 50 mg oral tablet 09/06/2015 10/06/2015 take 1 tablet (50 mg) by oral route once daily for 30 days topiramate 100 mg oral tablet 09/06/2015 10/06/2015 take 1 tablet (100 mg) by oral route 2 for 30 days Problem List Description Status Onset Anxiety disorder Active Asperger syndrome Active Bipolar 1 disorder Active 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 Depression Active Gastroesophageal Reflux Active Mental retardation Active PTSD (post-traumatic stress disorder) Active Seizure disorder Active TMJ (dislocation of temporomandibular joint) Active Vital Signs Date Time BP-Sys(mm[Hg] BP-Paola(mm[Hg]) HR(bpm) RR(rpm) Temp WT HT HC BMI BSA BMI Percentile O2 Sat(%) 09/04/2015 10:09:00 AM 122 mmHg 70 mmHg 77 bpm 20 rpm 98 F 194 lbs 64 in 33.30 kg/m2 1.99 m2 99 % Social History Name Description Comments Lives with Mom Tobacco Never smoker Alcohol Never History of Procedures Date Ordered Description Order Status 09/04/2015 12:00 AM HTLV/HIV CONFIRMJ ANTIBODY Reviewed 09/04/2015 12:00 AM BORDETELLA ANTIBODY Reviewed Results Summary Data and Description Results [...] 10:10AM Seizure disorder Sep 04 2015 10:10AM Payers Insurance Name Company Name Plan Name Plan Number Policy Number Policy Group Number Start Date Medicare Part A Medicare Part A [id number] N/A [facility] [id number] N/A History of Encounters Visit Date Visit Type Provider 09/04/2015 Office visit Dionisio Evans DO
--- OUTSIDE RECORDS SUMMARY | 2017-09-21 20:03 | XMS REPORT ---
Author Author Keisha Hoover [facility] Address [address] [place], [place] [phone] Care Team Providers Care Loss Prevention Analyst Name Role Phone Keisha Hoover PCP Unavailable [...] ASSAY OF THYROID (T3 OR T4) Returned Results Summary Data and Description Results 09/04/2015 11:35 AM HIV AG/AB COMBO 0.13 Hep A Ab, IgM Negative HBsAg Screen Negative Hep B Core Ab, IgM Negative Hep C Virus Ab <0.1 06/11/2016 9:50 AM TSH 1.740 uIU/mL History Of Immunizations Not available. History of [...] 2:55PM Bilateral Exophthalmos Jun 11 2016 8:46AM Payers Insurance Name Company Name Plan Name Plan Number Policy Number Policy Group Number Start Date Medicare Part A Medicare RHC [id number] [facility] RHC Comm [id number] N/A Medicare Part B Medicare Of [place] [id number] N/A [facility] Comm Plan of [id number] N/A Medicare Part A Medicare - Lab/Xray [id number] N/A Medicare Part A Medicare Part A [id number] N/A History of Encounters Visit Date Visit Type Provider 06/12/2016 Office visit Keisha Hoover HITCHER 06/11/2016 Office visit Dionisio Evans DO 06/08/2016 Office visit Keisha Hoover HITCHER 06/04/2016 Office visit Dionisio Evans DO 04/08/2016 Office visit Dionisio Evans DO 03/11/2016 Office visit Dionisio Evans DO 02/25/2016 Office visit Dionisio Evans DO 02/20/2016 [facility] Behzad Jamison MD 01/27/2016 Office visit Dionisio Evans DO 10/09/2015 [facility] Behzad Jamison MD 09/04/2015 Office visit Dionisio Evans DO
--- OUTSIDE RECORDS SUMMARY | 2017-09-21 20:03 | XMS REPORT ---
Author Author Dionisio Evans [facility] Address [address] [place] [phone] Care Team Providers Care Welfare Administrator Name Role Phone Dionisio Evans PCP Unavailable [...] Start Date Medicare Part A Medicare RHC [id number] N/A [facility] RHC Comm [id number] N/A Medicare Part B Medicare Of [place] [id number] N/A [facility] Comm Plan of [id number] N/A Medicare Part A Medicare - Lab/Xray [id number] N/A Medicare Part A Medicare Part A [id number] N/A History of Encounters Visit Date Visit Type Provider 01/27/2016 Office visit Dionisio Evans DO 10/09/2015 [facility] Behzad Jamison MD 09/04/2015 Office visit Dionisio Evans DO
--- OUTSIDE RECORDS SUMMARY | 2017-09-21 20:04 | XMS REPORT ---
Author Author Keisha Hoover [facility] Address [address] [place], [place] [phone] Care Team Providers Care Vest Finisher Name Role Phone Keisha Hoover PCP Unavailable [...] Start Date Medicare Part A Medicare RHC [id number] N/A [facility] - C - Community Plan [facility] RHC Comm [id number] N/A Medicare Part B Medicare Of [place] [id number] N/A [facility] Comm Plan of [id number] N/A Medicare Part A Medicare - Lab/Xray [id number] N/A Medicare Part A Medicare Part A [id number] N/A History of Encounters Visit Date Visit Type Provider 06/12/2016 Office visit Keisha Hoover PONY ROUGHER 06/11/2016 Office visit Dionisio Evans DO 06/08/2016 Office visit Keisha Hoover PONY ROUGHER 06/04/2016 Office visit Dionisio Evans DO 04/08/2016 Office visit Dionisio Evans DO 03/11/2016 Office visit Dionisio Evans DO 02/25/2016 Office visit Dionisio Evans DO 02/20/2016 Hospital Behzad Jamison MD 01/27/2016 Office visit Dionisio Evans DO 10/09/2015 Hospital Behzad Jamison MD 09/04/2015 Office visit Dionisio Evans DO
--- OUTSIDE RECORDS SUMMARY | 2017-09-21 20:05 | XMS REPORT ---
Author Author Dionisio Evans [facility] Address [address] [place], [place] [address] Care Team Providers Care Vice President Of Manufacturing Name Role Phone Dionisio Evans PCP Unavailable [...] 2 times a day for 30 days Name Start Date Expiration [...] Number Start Date Medicare Part A Medicare [facility] [id number] N/A [facility] Comm [id number] N/A Medicare Part B Medicare Of [place] [id number] N/A [facility] Comm Plan of [id number] N/A Medicare Part A Medicare - Lab/Xray [id number] N/A Medicare Part A Medicare Part A [id number] N/A History of Encounters Visit Date Visit Type Provider 02/25/2016 Office visit Dionisio Evans DO 01/27/2016 Office visit Dionisio Evans DO 10/09/2015 [facility] Behzad Jamison MD 09/04/2015 Office visit Dionisio Evans DO
--- OUTSIDE RECORDS SUMMARY | 2017-09-21 20:05 | XMS REPORT ---
Author Author Dionisio Evans [facility] Address [address] [place] [phone] Care Team Providers Care Weatherization Technician Name Role Phone Dionisio Evans PCP Unavailable [...] by oral route once daily at bedtime Zestril 5 mg oral tablet 04/08/2016 05/08/2016 take 1 tablet (5 mg) by oral route once daily for 30 days cyclobenzaprine 5 mg oral tablet 04/08/2016 take 1 tablet by oral route once a day (at bedtime) as needed Name Start Date Expiration Date SIG Comments [...] by oral route at bedtime as needed Problem List Description Status Onset Anxiety disorder [...] HC BMI BSA BMI Percentile O2 Sat(%) 04/08/2016 8:57:00 AM 118 mmHg 60 mmHg [...] 12:00 AM Phenergan, Up to 50 Mg C Medicaid Reviewed Results Summary Data and Description [...] aura without headache Apr 08 2016 8:57AM Payers Insurance Name Company Name Plan Name Plan Number Policy Number Policy Group Number Start Date Medicare Part A Medicare RHC [id number] [facility] [id number] N/A Medicare Part B Medicare Of [place] [id number] N/A [facility] Comm Plan of [id number] N/A Medicare Part A Medicare - Lab/Xray [id number] N/A Medicare Part A Medicare Part A [id number] N/A History of Encounters Visit Date Visit Type Provider 04/08/2016 Office visit Dionisio Evans DO 03/11/2016 Office visit Dionisio Evans DO 02/25/2016 Office visit Dionisio Evans DO 01/27/2016 Office visit Dionisio Evans DO 10/09/2015 [facility] Behzad Jamison MD 09/04/2015 Office visit Dionisio Evans DO
--- OUTSIDE RECORDS SUMMARY | 2017-09-21 20:05 | XMS REPORT | CCD ---
Author Author [facility] Organization Unknown Address [address] [place] [address] Care Team Providers Care Parachute/Combatant Diver Officer Name Role Phone ALEX ER, LAKIA DO Attphys ALEX ER, LAKIA DO Prisurg Allergies Allergy Code Allergy Type Reaction Status IBU 169572 Drug allergy Active DILANTIN 432142 Drug allergy Active Active Medications Unknown or Not Available. Problems Unknown or Not Available. Procedures Procedure Code Procedure Type Date CT MAXILLOFACIAL W/O CONTRAST 659930505 SNOMED CT 2015 MANDIBLE; [address] 06/07/2016 Results Unknown or Not Available. Function Status Unknown or Not Available. History [...] Code Start Date End Date Never smoker [id number] Vital Signs Unknown or Not Available. Function Status Unknown or Not Available. Goals Unknown or Not Available. ASSESSMENTS Unknown or Not Available. Health Concerns Section Unknown or Not Available.
--- OUTSIDE RECORDS SUMMARY | 2017-09-21 20:05 | XMS REPORT ---
Author Author Keisha Hoover [facility] Address [address] [place] [id number] Care Team Providers Care Hog Handler Name Role Phone Keisha Hoover PCP Unavailable [...] needed omeprazole 40 mg oral capsule,delayed release(DR/EC) 07/28/2016 [...] oral route once daily for 30 days Mirena 20 mcg/24 hr (5 years) intrauterine intrauterine device 06/29/2017 Problem List Description Status Onset Anxiety disorder [...] HC BMI BSA BMI Percentile O2 Sat(%) 06/29/2017 1:36:00 PM 121 mmHg 65 mmHg 68 bpm 98.3 F 158 lbs 64 in 27.12 kg/m2 1.80 m2 06/17/2017 10:38:00 AM 124 mmHg 70 mmHg 77 bpm 16 rpm 97.9 F 158 lbs 64 in 27.1204 kg/m 1.7989 m 98 % 12/28/2016 11:11:00 AM 112 mmHg [...] T4) Reviewed 12/17/2016 12:00 AM Consult/Referral Reviewed 06/29/2017 12:00 AM REMOVE INTRAUTERINE DEVICE Reviewed Results Summary Date and Description Results [...] participation in sport Jun 17 2017 10:40AM Encounter for removal of intrauterine contraceptive device (IUD) Jun 29 2017 1:53PM Payers Insurance Name Company Name Plan Name Plan Number Policy Number Policy Group Number Start Date Medicare RHC Medicare [facility] [id number] N/A [facility] RHC Comm [id number] N/A Medicare Part B Medicare Of [place] [id number] N/A [facility] Comm Plan of [id number] N/A Medicare Part A Medicare - Lab/Xray [id number] N/A Medicare Part A Medicare Part A [id number] N/A History of Encounters Visit Date Visit Type Provider 06/29/2017 Procedures Keisha Hoover SEARCH STRATEGIST 06/17/2017 Office visit Dionisio Evans DO 12/28/2016 Office visit Kaye Raman SEARCH STRATEGIST 09/23/2016 Office visit Dionisio Evans DO 07/31/2016 Office visit Dionisio Evans DO 07/24/2016 Office visit Keisha Hoover SEARCH STRATEGIST 06/12/2016 Office visit Keisha Hoover SEARCH STRATEGIST 06/11/2016 Office visit Dionisio Evans DO 06/08/2016 Office visit Keisha Hoover SEARCH STRATEGIST 06/04/2016 Office visit Dionisio Evans DO 04/08/2016 Office visit Dionisio Evans DO 03/11/2016 Office visit Dionisio Evans DO 02/25/2016 Office visit Dionisio Evans DO 02/20/2016 Hospital Behzad Jamison MD 01/27/2016 Office visit Dionisio Evans DO 10/09/2015 Hospital Behzad Jamison MD 09/04/2015 Office visit Dionisio Evans DO
--- OUTSIDE RECORDS SUMMARY | 2017-09-21 20:05 | XMS REPORT ---
Author Author Dionisio Evans [facility] Address [address] [place], [place] [address] Care Team Providers Care Customer Advocacy Manager Name Role Phone Dionisio Evans PCP [...] Date Medicare Part A Medicare Part A [id number] N/A [facility] [id number] N/A History of Encounters Visit Date Visit Type Provider 09/04/2015 Office visit Dionisio Evans DO
--- OUTSIDE RECORDS SUMMARY | 2017-09-21 20:06 | XMS REPORT ---
Author Author Keisha Hoover [facility] Address [address] [place], [place] [address] Care Team Providers Care Composition Mixer Name Role Phone Keisha Hoover PCP Unavailable [...] test, negative result Jun 12 2016 10:38AM Payers Insurance Name Company Name Plan Name Plan Number Policy Number Policy Group Number Start Date Medicare Part A Medicare RHC [id number] N/A [facility] Community Plan [facility] RHC Comm [id number] N/A Medicare Part B Medicare Of [place] [id number] N/A [facility] Comm Plan of [id number] N/A Medicare Part A Medicare - Lab/Xray [id number] N/A Medicare Part A Medicare Part A [id number] N/A History of Encounters Visit Date Visit Type Provider 06/12/2016 Office visit Keisha Hoover SUPERVISOR INSPECTION ROOM 06/11/2016 Office visit Dionisio Evans DO 06/08/2016 Office visit Keisha Hoover SUPERVISOR INSPECTION ROOM 06/04/2016 Office visit Dionisio Evans DO 04/08/2016 Office visit Dionisio Evans DO 03/11/2016 Office visit Dionisio Evans DO 02/25/2016 Office visit Dionisio Evans DO 02/20/2016 Hospital Behzad Jamison MD 01/27/2016 Office visit Dionisio Evans DO 10/09/2015 [facility] Behzad Jamison MD 09/04/2015 Office visit Dionisio Evans DO
--- OUTSIDE RECORDS SUMMARY | 2017-09-21 20:07 | XMS REPORT ---
Author Author Keisha Hoover [facility] Address [address] [place] [id number] Care Team Providers Care Fuel Cell Battery Technician Name Role Phone Keisha Hoover PCP Unavailable [...] 07/29/2016 use as directed for 5 days Nexplanon 68 mg subdermal implant 06/29/2017 02/17/2013 implant 1 by subdermal route daily for 1 day Discontinued Name [...] contraceptive device (IUD) Jun 29 2017 1:53PM NEXPLANON Insertion Jun 29 2017 1:52PM Payers Insurance Name Company Name Plan Name Plan Number Policy Number Policy Group Number Start Date Medicare RHC Medicare RHC [id number] N/A [facility] RHC Comm [id number] N/A Medicare Part B Medicare Of [place] [id number] N/A [facility] Comm Plan of [id number] N/A Medicare Part A Medicare - Lab/Xray [id number] N/A Medicare Part A Medicare Part A [id number] N/A History of Encounters Visit Date Visit Type Provider 06/29/2017 Procedures Keisha Hoover FLUME WORKER 06/17/2017 Office visit Dionisio Evans DO 12/28/2016 Office visit Kaye Raman FLUME WORKER 09/23/2016 Office visit Dionisio Evans DO 07/31/2016 Office visit Dionisio Evans DO 07/24/2016 Office visit Keisha Hoover FLUME WORKER 06/12/2016 Office visit Keisha Hoover FLUME WORKER 06/11/2016 Office visit Dionisio Evans DO 06/08/2016 Office visit Keisha Hoover FLUME WORKER 06/04/2016 Office visit Dionisio Evans DO 04/08/2016 Office visit Dionisio Evans DO 03/11/2016 Office visit Dionisio Evans DO 02/25/2016 Office visit Dionisio Evans DO 02/20/2016 Hospital Behzad Jamison MD 01/27/2016 Office visit Dionisio Evans DO 10/09/2015 [facility] Behzad Jamison MD 09/04/2015 Office visit Dionisio Evans DO
--- OUTSIDE RECORDS SUMMARY | 2017-09-21 20:07 | XMS REPORT | CCD ---
Author MOLLY Cutler Unknown Address [address] [place], [place] [address] Care Team Providers Care Speech And Hearing Clinic Director Name Role Phone HICO ER, LAKIA DO Attphys HICO ER, LAKIA DO Prisurg Vital Signs Unknown or Not Available. Allergies Allergy Code Allergy Type Reaction Status IBU 763427 Drug allergy Active DILANTIN 050234 Drug allergy Active Procedures Procedure Code Procedure Type Date HAND;MINIMUM 3VWS 18641547 SNOMED CT 04/16/2016 History of Immunizations Immunization Code Date DTP [...] Encounters Encounter Diagnosis Diagnosis Code Start Date Contusion of right hand, initial encounter [id number] 04/16/2016 Social History Smoking Status Code Start Date End Date Never smoker 047412057 Patient Decision Aids Unknown or Not Available. Discharge Instructions You were admitted to [facility] on 04/16/2016 09:22 with a principal diagnosis of Contusion of right hand, initial encounter You were discharged from [facility] on 04/16/2016 10:37 Should you have any questions prior to discharge, please contact a member of your healthcare team. If you have left the hospital and have any questions, please contact your primary care physician. Chief Complaint and Reason For Visit Chief Complaint Date of Onset HAND CRUSH INJURY Function Status Unknown or Not Available. Plan of Care Unknown or Not Available. Referral/Transition of Care Unknown or Not Available.
--- OUTSIDE RECORDS SUMMARY | 2017-09-21 20:07 | XMS REPORT ---
Author Author Keisha Hoover [facility] Address [address] [place] [phone] Care Team Providers Care Mva Still Operator Name Role Phone Keisha Hoover PCP [...] Number Start Date Medicare RHC Medicare RHC [id number] N/A [facility] RHC Comm [id number] N/A Medicare Part B Medicare Of [place] [id number] N/A [facility] Comm Plan of [id number] N/A Medicare Part A Medicare - Lab/Xray [id number] N/A Medicare Part A Medicare Part A [id number] N/A History of Encounters Visit Date Visit Type Provider 06/29/2017 Procedures Keisha Hoover DETONATOR MAKER 06/17/2017 Office visit Dionisio Evans DO 12/28/2016 Office visit Kaye Raman DETONATOR MAKER 09/23/2016 Office visit Dionisio Evans DO 07/31/2016 Office visit Dionisio Evans DO 07/24/2016 Office visit Keisha Hoover DETONATOR MAKER 06/12/2016 Office visit Keisha Hoover DETONATOR MAKER 06/11/2016 Office visit Dionisio Evans DO 06/08/2016 Office visit Keisha Hoover DETONATOR MAKER 06/04/2016 Office visit Dionisio Evans DO 04/08/2016 Office visit Dionisio Evans DO 03/11/2016 Office visit Dionisio Evans DO 02/25/2016 Office visit Dionisio Evans DO 02/20/2016 Hospital Behzad Jamison MD 01/27/2016 Office visit Dionisio Evans DO 10/09/2015 [facility] Behzad Jamison MD 09/04/2015 Office visit Dionisio Evans DO
--- OUTSIDE RECORDS SUMMARY | 2017-09-21 20:07 | XMS REPORT | CCD ---
Author Author [facility] Organization Unknown Address [address] [place] [address] Care Team Providers Care Sales Compensation Analyst Name Role Phone [place] ER, LAKIA DO Attphys [place] ER, LAKIA DO Prisurg Allergies Allergy Code Allergy Type Reaction Status IBU 137618 Drug allergy Active DILANTIN 898619 Drug allergy Active Active Medications Unknown or Not Available. Problems Unknown or Not Available. Procedures Procedure Code Procedure Type Date TEST [id number] SNOMED CT 08/16/2016 COMPREHENSIVE METABOLIC PANEL 370765166 SNOMED CT 2015 CBC W/ AUTO DIFF (RFLX MAN DIFF IF IND) 4186819 SNOMED CT 08/16/2016 ^CBC W/AUTO DIFF 8540068 SNOMED CT 08/16/2016 Results COMPREHENSIVE METABOLIC PANEL - Collect Date/Time: 08/16/2016 11:50 Test Name Code Test Result Test Units Test Ref Range GLUCOSE 2345-7 91 MG/DL L=70 H=100 SODIUM 2951-2 143 MEQ/L L=135 H=148 POTASSIUM 2823-3 3.8 MEQ/L L=3.5 H=5.3 CHLORIDE 2075-0 111 MEQ/L L=96 H=110 CO2 2028-9 20 MEQ/L L=22 H=29 BUN 3094-0 12 MG/DL L=8 H=22 CREATININE 2160-0 1.2 MG/DL L=0.6 H=1.6 SGOT/AST 1920-8 16 IU/L L=10 H=40 SGPT/ALT 1742-6 21 IU/L L=8 H=54 ALK PHOS 6768-6 107 IU/L L=35 H=115 TOTAL PROTEIN 2885-2 7.7 G/DL L=5.5 H=8.5 ALBUMIN 1751-7 4.6 G/DL L=3.1 H=5.4 TOTAL BILI 1975-2 0.4 MG/DL L=0.0 H=1.5 CALCIUM 12737-9 10.0 MG/DL L=8.2 H=10.6 AGE 21 yrs GFR NonAA 56 GFR AA 68 eGFR 56 mL/min/1.7 eGFR AA* >60 N/A CBC W/ AUTO DIFF (RFLX MAN DIFF IF IND) - Collect Date/Time: 08/16/2016 11:50 Test Name Code Test Result Test Units Test Ref Range WBC 35997-0 7.3 TH/CMM L=4.5 H=10.8 RBC 789-8 5.01 ML/CMM L=4.20 H=5.40 HGB 718-7 14.7 G/DL L=12.0 H=16.0 HCT 4544-3 44.2 % L=37.0 H=47.0 MCV 88 FL L=81 H=99 MCH 29.3 PG L=27.0 H=33.0 MCHC 33.3 G/DL L=31.0 H=36.0 RDW SD 44 FL L=36 H=50 RDW CV 13.7 % L=0.0 H=14.8 MPV 9.7 FL L=9.3 H=12.5 PLT 777-3 274 TH/CMM L=130 H=440 NRBC# 0.00 TH/CMM L=0.00 H=0.00 NRBC% 0.0 /100WBC L=0.0 H=2.0 %NEUT 66.5 % %LYMP 24.5 % %MONO 6.8 % %EOS 1.2 % %BASO 0.7 % #NEUT 4.87 TH/CMM L=2.10 H=8.20 #LYMP 1.79 TH/CMM L=0.90 H=5.20 #MONO 0.50 TH/CMM L=0.16 H=1.00 #EOS 0.09 TH/CMM L=0.00 H=0.80 #BASO 0.05 TH/CMM L=0.00 H=0.20 MANUAL DIFF NOT IND N/A TEST - Collect Date/Time: 08/16/2016 11:50 Test Name Code Test Result Test Units Test Ref Range TEST 2118-8 NEGATIVE N/A Function Status Unknown or Not Available. History [...] Code Start Date End Date Never smoker 007724630 Vital Signs Unknown or Not Available. Function Status Unknown or Not Available. Goals Unknown or Not Available. ASSESSMENTS Unknown or Not Available. Health Concerns Section Unknown or Not Available.
--- OUTSIDE RECORDS SUMMARY | 2017-09-21 20:08 | XMS REPORT ---
Author Author Dionisio Evans [facility] Address [address] [place] [id number] Care Team Providers Care Granite Block Paver Name Role Phone Dionisio Evans PCP Unavailable Allergies and Adverse Reactions Name Reaction Notes Breantin Mom does not want her to have [...] every 4-6 hours as needed Max:3 gram/day Ambien 5 mg oral tablet take 1 [...] Start Date Medicare Part A Medicare RHC [id number] N/A [facility] - Community Plan [facility] RHC Comm [id number] N/A Medicare Part B Medicare Of [place] [id number] N/A [facility] Comm Plan of [id number] N/A Medicare Part A Medicare - Lab/Xray [id number] N/A Medicare Part A Medicare Part A [id number] N/A History of Encounters Visit Date Visit Type Provider 09/23/2016 Office visit Dionisio Evans DO 07/31/2016 Office visit Dionisio Evans DO 07/24/2016 Office visit Keisha Hoover IN STORE MARKETER 06/12/2016 Office visit Keisha Hoover IN STORE MARKETER 06/11/2016 Office visit Dionisio Evans DO 06/08/2016 Office visit Keisha Hoover IN STORE MARKETER 06/04/2016 Office visit Dionisio Evans DO 04/08/2016 Office visit Dionisio Evans DO 03/11/2016 Office visit Dionisio Evans DO 02/25/2016 Office visit Dionisio Evans DO 02/20/2016 [facility] Behzad Jamison MD 01/27/2016 Office visit Dionisio Evans DO 10/09/2015 [facility] Behzad Jamison MD 09/04/2015 Office visit Dionisio Evans DO
--- OUTSIDE RECORDS SUMMARY | 2017-09-21 20:09 | XMS REPORT | CCD ---
Author Author [facility] Organization Unknown Address [address] [place] [address] Care Team Providers Care Linux System Admin Name Role Phone KAYLIN BOB, DOLLY Del Toro Attphys DOLLY EWING MD Prisurrubin Allergies Allergy Code Allergy Type Reaction Status IBU 477643 Drug allergy Active DILANTIN 329343 Drug allergy Active Active Medications Unknown or Not Available. Problems Unknown or Not Available. Procedures Procedure Code Procedure Type Date ELBOW [address] 09/19/2016 Results Unknown or Not Available. Function Status [...] Code Start Date End Date Never smoker 795018944 Vital Signs Unknown or Not Available. Function Status Unknown or Not Available. Goals Unknown or Not Available. ASSESSMENTS Unknown or Not Available. Health Concerns Section Unknown or Not Available.
--- OUTSIDE RECORDS SUMMARY | 2017-09-21 20:09 | XMS REPORT | Continuity of Care Document ---
Author Author [facility] Address Unknown Phone Unavailable Allergies Medications Problems Procedures Results Encounters ACCT No. Visit Date/Time Discharge Status Pt. Type Provider Facility Loc./Unit Complaint [id number] 06/29/2017 14:25:17 06/29/2017 23: 59:59 CLS Outpatient Keisha Hoover [id number] 06/17/2017 11:29:34 06/17/2017 23: 59:59 CLS Outpatient Dionisio Evans [id number] 12/28/2016 11:51:08 12/28/2016 23: 59:59 CLS Outpatient Kaye Raman [id number] 09/23/2016 10:32:53 09/23/2016 23: 59:59 CLS Outpatient Dionisio Evans [id number] 07/31/2016 10:59:55 07/31/2016 23: 59:59 CLS Outpatient Dionisio Evans [id number] 07/24/2016 11:33:54 07/24/2016 23: 59:59 CLS Outpatient Keisha Hoover [id number] 06/12/2016 10:40:22 06/12/2016 23: 59:59 CLS Outpatient Keisha Hoover [id number] 06/11/2016 09:37:14 06/11/2016 23: 59:59 CLS Outpatient Dionisio Evans [id number] 06/08/2016 15:05:35 06/08/2016 23: 59:59 CLS Outpatient Keisha Hoover [id number] 06/04/2016 16:35:06 06/04/2016 23: 59:59 CLS Outpatient Dionisio Evans [id number] 04/30/2016 10:19:05 04/30/2016 23: 59:59 CLS Outpatient Behzad Jamison [id number] 04/08/2016 09:51:44 04/08/2016 23: 59:59 CLS Outpatient Dionisio Evans [id number] 12/01/2015 19:38:53 12/01/2015 23: 59:59 CLS Outpatient Behzad Jamisno [id number] 09/04/2015 10:23:54 09/04/2015 23: 59:59 CLS Outpatient Dionisio Evans
--- OUTSIDE RECORDS SUMMARY | 2017-09-21 20:09 | XMS REPORT ---
Author Author Keisha Hoover [facility] Address [address] [place], [place] [phone] Care Team Providers Care Associate Marketing Manager Name Role Phone Keisha Hoover PCP [...] mcg/24 hr (5 years) intrauterine intrauterine device nystatin 100,000 unit/gram topical powder 07/24/2016 07/29/2016 use as directed for 5 days Name Start Date Expiration Date SIG [...] HC BMI BSA BMI Percentile O2 Sat(%) 07/24/2016 10:39:00 AM 122 mmHg 66 mmHg [...] 10:28AM IUD Check/Removal/Management/Reinsertion Jul 24 2016 10:42AM Payers Insurance Name Company Name Plan Name Plan Number Policy Number Policy Group Number Start Date Medicare Part A Medicare RHC [id number] N/A [facility] RHC Comm [id number] N/A Medicare Part B Medicare Of [place] [id number] N/A [facility] Comm Plan of [id number] N/A Medicare Part A Medicare - Lab/Xray [id number] N/A Medicare Part A Medicare Part A [id number] N/A History of Encounters Visit Date Visit Type Provider 07/24/2016 Office visit Keisha Hoover SUBWAY REPAIR SUPERVISOR 06/12/2016 Office visit Keisha Hoover SUBWAY REPAIR SUPERVISOR 06/11/2016 Office visit Dionisio Evans DO 06/08/2016 Office visit Keisha Hoover SUBWAY REPAIR SUPERVISOR 06/04/2016 Office visit Dionisio Evans DO 04/08/2016 Office visit Dionisio Evans DO 03/11/2016 Office visit Dionisio Evans DO 02/25/2016 Office visit Dionisio Evans DO 02/20/2016 Hospital Behzad Jamison MD 01/27/2016 Office visit Dionisio Evans DO 10/09/2015 [facility] Behzad Jamison MD 09/04/2015 Office visit Dionisio Evans DO
--- OUTSIDE RECORDS SUMMARY | 2017-09-21 20:09 | XMS REPORT | CCD ---
Author MOLLY Cutler Organization Unknown Address [address] [place] [address] Care Team Providers Care Client Support Manager Name Role Phone ROBINSON ER, LAKIA DO Attphys ROBINSON ER, LAKIA DO Prisurg Allergies Allergy Code Allergy Type Reaction Status IBU 232102 Drug allergy Active DILANTIN 341591 Drug allergy Active Active Medications Unknown or Not Available. Problems Unknown or Not Available. Procedures Unknown or Not Available. Results Unknown or Not Available. Encounters Encounter Diagnosis Diagnosis Code Start Date Laceration without foreign body of lip, subsequent encounter [id number] 09/24/2016 Function Status Unknown or Not Available. [...] Code Start Date End Date Never smoker [id number] Vital Signs Unknown or Not Available. Function Status Unknown or Not Available. Goals Unknown or Not Available. ASSESSMENTS Unknown or Not Available. Health Concerns Section Unknown or Not Available.
--- OUTSIDE RECORDS SUMMARY | 2017-09-21 20:09 | XMS REPORT ---
Author Author Keisha Hoover [facility] Address [address] [place], [place] [address] Care Team Providers Care Preservationist Name Role Phone Keisha Hoover PCP Unavailable [...] Start Date Medicare Part A Medicare RHC [id number] [facility] RHC Comm [id number] N/A Medicare Part B Medicare Of [place] [id number] N/A [facility] Comm Plan of [id number] N/A Medicare Part A Medicare - Lab/Xray [id number] N/A Medicare Part A Medicare Part A [id number] N/A History of Encounters Visit Date Visit Type Provider 06/12/2016 Office visit Keisha Hoover CYTOGENETICIST 06/11/2016 Office visit Dionisio Evans DO 06/08/2016 Office visit Keisha Hoover CYTOGENETICIST 06/04/2016 Office visit Dionisio Evans DO 04/08/2016 Office visit Dionisio Evans DO 03/11/2016 Office visit Dionisio Evans DO 02/25/2016 Office visit Dionisio Evans DO 02/20/2016 [facility] Behzad Jamison MD 01/27/2016 Office visit Dionisio Evans DO 10/09/2015 [facility] Behzad Jamison MD 09/04/2015 Office visit Dionisio Evans DO
[2017-09-21] MEDS ORDERED: hydrOXYzine (VISTARIL) 25 MG CAP PO ONE (20:30)
[2017-09-21] MEDS ORDERED: predniSONE 20 MG TAB PO ONE (20:30)
[2017-09-21] MEDS ORDERED: FAMOTIDINE 20 MG (PEPCID) TABLET PO ONE (20:30)
--- NOTE | 2017-09-21 20:32 | ED General ---
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 CARE WORKER REPORTS SHE STOPPED IN [place] GAVE PT BENADRYL X2. PT AWAKE, ALERT, TREMBLING. NO DISTRESS OR DISCOMFORT NOTED. NO OTHER C/O VOICED Nursing Sepsis Screen: No Definite Risk Source of Information: Patient, Caregiver History of Present Illness Time Seen by Provider: 20:15 Initial Comments PT C/O BURNING AND ITCHING OF HANDS, ARMS AND LEGS HANDS "FEEL LIKE THEY ARE ON FIRE" AND STATES THEY ARE RED ALSO FEELS LIKE SHE HAS A LUMP IN HER THROAT AND WAS HAVING SOME PROBLEMS SWALLOWING SYMPTOMS BEGAN APPROXIMATELY AN HOUR AGO TOOK BENADRYL AROUND 1930 AND SYMPTOMS HAVE IMPROVED, BUT ARE NOT GONE--HANDS STILL BURNING AND ITCHING, AND LEGS STILL FEEL A LITTLE ITCHY. FEELS LIKE SHE CAN SWALLOW BETTER NO PROBLEMS BREATHING OR TALKING NO SWELLING ANYWHERE NO NAUSEA/VOMITING PT HAS BEEN SHOPPING IN [place] TODAY, AND ATE DINNER AT [employer] IN [place]--HAD A MONSTER BURGER AND FRIES. SYMPTOMS BEGAN SHORTLY AFTER SHE HAD EATEN. HAS HAD THESE SAME FOODS BEFORE WITHOUT PROBLEMS ATE 1 ROASTED PECAN AT THE [place] AROUND 1700-HAD NEVER HAD BEFORE. NO PRIOR PROBLEMS WITH FOODS PCP: DR. VILLAGOMEZ [place] Allergies and Home Medications Allergies Coded Allergies: ibuprofen (Verified Allergy, Unknown, 09/21/17) phenytoin (Verified Allergy, Unknown, 09/21/17) Constitutional: no symptoms reported EENTM: see HPI Respiratory: no symptoms reported, No cough, No short of breath, No stridor, No wheezing Cardiovascular: no symptoms reported Gastrointestinal: no symptoms reported, No nausea, No vomiting Genitourinary: no symptoms reported Musculoskeletal: no symptoms reported Skin: see HPI Psychiatric/Neurological: Anxiety Hematologic/Lymphatic: No Symptoms Reported Immunological/Allergic: see HPI Past [id number] Hx Patient Social History Alcohol Use: Denies Use Recreational Drug Use: No Smoking Status: Never a Smoker Recent Foreign Travel: No Contact w/Someone Who Travel: No Recent Infectious Disease Expo: No Recent Hopitalizations: No Physical Abuse: No Sexual Abuse: No Mistreated: No Fear: No Surgeries History of Surgeries: Yes Surgeries: Eye Surgery, Gallbladder Respiratory History of Respiratory Disorde: No Cardiovascular History of Cardiac Disorders: No Neurological History of Neurological Disord: Yes Neurological Disorders: Developmental Disorder, Seizure Disorder Genitourinary History of Genitourinary Disor: No Gastrointestinal History of Gastrointestinal Di: No Musculoskeletal History of Musculoskeletal Dis: No Endocrine History of Endocrine Disorders: No HEENT History of HEENT Disorders: No Cancer History of Cancer: No Psychosocial History of Psychiatric Problem: No Suicide Risk Score: 0 Integumentary History of Skin or Integumenta: No Blood Transfusions History of Blood Disorders: No Physical Exam Vital Signs Vital Sign - Last 12Hours 09/21/17 19:57 Temp 96.8 Pulse 72 Resp 16 B/P (MAP) 114/71 (85) Pulse Ox 100 O2 Delivery Room Air Capillary Refill : Less Than 3 Seconds General Appearance: No Apparent Distress, WD/WN, Anxious HEENT: PERRL/EOMI, TMs Normal, Normal ENT Inspection, Pharynx Normal, Other ( NO SWELLING NOTED . VOICE NORMAL) Neck: Full Range of Motion, Normal Inspection, Non Tender Respiratory: Chest Non Tender, Normal Breath Sounds, No Accessory Muscle Use, No Respiratory Distress Cardiovascular: Regular Rate, Rhythm, No Edema, No JVD, No Murmur, Normal Peripheral Pulses Gastrointestinal: Non Tender, Soft Back: Normal Inspection Extremity: Normal Capillary Refill, Normal Inspection, Normal Range of Motion, Non Tender, No Calf Tenderness, No Pedal Edema Neurologic/Psychiatric: Alert, Oriented x3, No Motor/Sensory Deficits, photo offset printer II- XII Norm as Tested, Other (ANXIOUS) Skin: Normal Color, Warm/Dry, No Rash, Other (HANDS DO NOT APPEAR SIGNIFICANTLY REDDENED) Progress/Results/Core Measures Suspected Sepsis Recent Fever Within 48 Hours: No Infection Criteria Present: None New/Unexplained Altered Menta: No Sepsis Screen: No Definite Risk Sepsis Diagnosis: SIRS Temperature:96.8 Pulse: 72 Respiratory Rate: 16 Blood Pressure 114 /71 Mean: 85 Results/Orders My Orders Orders - SATINDERLLOYD K DO Prednisone Tablet (Deltasone Tablet) (09/21/17 20:30) Hydroxyzine Oral (Vistaril Capsule) (09/21/17 20:30) Famotidine Tablet (Pepcid Tablet) (09/21/17 20:30) Medications Given in ED Current Medications Medications Dose Ordered Sig/Ольга Route Start Time Stop Time Status Last Admin Dose Admin Famotidine 40 mg ONCE ONCE PO 09/21/17 20:30 09/21/17 20:31 DC 09/21/17 20:37 40 MG Hydroxyzine Pamoate 50 mg ONCE ONCE PO 09/21/17 20:30 09/21/17 20:31 DC 09/21/17 20:37 50 MG Prednisone 40 mg ONCE ONCE PO 09/21/17 20:30 09/21/17 20:31 DC 09/21/17 20:37 40 MG Vital Signs/I&O Vital Sign - Last 12Hours 09/21/17 19:57 Temp 96.8 Pulse 72 Resp 16 B/P (MAP) 114/71 (85) Pulse Ox 100 O2 Delivery Room Air Capillary Refill : Less Than 3 Seconds Blood Pressure Mean: 85 Progress Note : Progress Note SYMPTOMS IMPROVED AT DISMISSAL Departure Impression Impression: Primary Impression: POSSIBLE FOOD ALLERGY Disposition: 01 HOME, SELF-CARE Condition: Stable Departure-Patient Inst. Referrals: OG IRENE DO (PCP/Family) Primary Care Physician Patient Instructions: Food Allergy Add. Discharge Instructions: LOTS OF CLEAR LIQUIDS BENADRYL 50 MG EVERY 4 HOURS NEEDED RETURN TO ER IF SYMPTOMS WORSEN All discharge instructions reviewed with patient and/or family. Voiced understanding. LLOYD RAJAN DO Sep 21, 2017 20:32
[2017-09-21 21:10] VITALS: BP 122/77
== END 2017-09-21 21:10 | disposition home or self-care (01) ==
LOC: EDUNIT# 19:47 → ER 19:50
DX: L29.9 Pruritus, unspecified (principal); G40.909 Epilepsy, unspecified, not intractable, without status epilepticus
CPT/HCPCS: 99283